=== PATIENT | male | born 1985 | race Caucasian/White ===

== ENCOUNTER 2018-01-26 | Inpatient (IN) | payer OTHER ==
[~2018-01-26] VITALS: Ht 182.9 cm; Wt 95.7 kg
--- NOTE | 2018-01-26 00:55 | RADIOLOGY REPORT ---
EXAMINATION: XR PORTABLE CHEST CLINICAL INFORMATION: Overdose. Rhonchi. Hypoxia. COMPARISON: Chest x-ray January 09, 2012 TECHNIQUE: Portable frontal view of the chest was obtained. 12:19 AM FINDINGS: There is dense consolidation in the right midlung with relative sparing of the upper and lower lung field on the right. There are less dense airspace opacities in the left mid and lower lung which has a similar distribution to the right lung. Differential diagnosis would include therefore overwhelming sepsis with bilateral pneumonia versus cardiogenic etiology. ARDS is less likely but not excluded. There is no pleural effusion. There is no pneumothorax. The cardiac and mediastinal contours are normal. Heart size is normal. IMPRESSION: Bilateral airspace opacities greater on the right than left.
[2018-01-26 01:00] LABS: ABSOLUTE BASOPHIL COUNT 0 /CUMM (0.0-0.2); ABSOLUTE EOSINOPHIL COUNT 0.1 /CUMM (0.0-0.7); ABSOLUTE GRANULOCYTE CT 4.2 /CUMM (1.4-6.5); ABSOLUTE LYMPH COUNT 1.7 /CUMM (1.2-3.4); ABSOLUTE MONOCYTE COUNT 1.4 /CUMM (0.10-0.60); BASOPHIL % 0.3 % (0.0-2.0); EOSINOPHIL % 1.1 % (0-5); GRANULOCYTE % 56.3 % (42.2-75.2); HEMATOCRIT 49.6 % (42-52); MEAN CORPUSCULAR HGB 30.6 PG (27.0-31.0); MEAN CORPUSCULAR HGB CONC 34.3 G/DL (33.0-37.0); MEAN CORPUSCULAR VOLUME 89.3 FL (80.0-94.0); MEAN PLATELET VOLUME 8.9 FL (7.4-10.4); PLATELET COUNT 278 /CUMM (130-400); RBC DISTRIBUTION WIDTH 13.4 % (11.5-14.5); RED BLOOD CELL CT 5.56 /CUMM (4.70-6.10); WHITE BLOOD CELL COUNT 7.5 /CUMM (4.8-10.8)
--- NOTE | 2018-01-26 01:12 | ED GENERAL ADULT ---
History of Present Illness General Chief Complaint: ETOH/Drug Related Complaint Stated Complaint: BIBA FOR OVERDOSE Source: old records, EMS Exam Limitations: unable to give history Vital Signs & Intake/Output Vital Signs & Intake/Output Vital Signs Date Time Temp Pulse Resp B/P B/P Pulse O2 O2 Flow FiO2 Mean Ox Delivery Rate 01/26 0330 105 24 111/62 96 Ventilator 100% 01/26 0300 99.6 102 24 107/60 97 Ventilator 100% 01/26 0215 100.3 105 24 113/62 97 Ventilator 100% 01/26 0200 106 153/85 01/26 0145 100.8 107 24 169/99 95 Ventilator 100% 01/26 0114 100 01/26 0111 92 Ventilator 100% 01/26 0110 108 20 127/73 94 Ventilator 100% 01/26 0107 113 20 124/82 89 Ventilator 01/26 0009 98.5 145 48 144/75 74 Non ReBreather Allergies Coded Allergies: NO KNOWN ALLERGIES (12/27/11) Triage Note: PT BIBA FROM HOME S/P BEING FOUND UNRESPONSIVE ON FLOOR IN PARENT'S HOUSE. PT LAST SEEN AWAKE AT 1700. ON PD ARRIVAL FIRST RESPONDERS, PT WITH AGONAL RESPIRATIONS. PD ADMINISTERED 2 DOSES OF 2 MG NARCAN AND ASSISTED RESPIRATIONS WITH BVM. ON EMS ARRIVAL, O2 SAT 58%. PT AWAKE, ANSWERING QUESTIONS FOR EMS. PT ADMITED TO SNORTING 2 BAGS OF HEROIN AND 2 "HITS OF COCAINE". PER PARENTS, PT HAD BEEN "CLEAN FOR A YEAR" FINGERSTICK BY EMS 322. PT HAS PRE HOSP 20G TO LH, NS INFUSING ON ARRIVAL. ON ARRIVAL TO ED. PT TACHYPNIC AT 48, O2 SAT LOW 70'S ON 100% NRB. PT AFEBRILE. RHONCHI ON AUSCULTATION. PT SMELLS OF VOMIT. DR GILBERT AT BEDSIDE TO EVAL PT. RT CALLED Triage Nurses Notes Reviewed? yes Onset: Just prior to arrival Duration: hour(s):, constant, continues in ED Timing: recent history Injury Environment: home Severity: severe No Modifying Factors: none HPI: The patient was found unresponsive for unknown duration. He was given Narcan by EMS and admitted to snorting 2 bags of heroin and cocaine. He complains of shortness of breath. He denies fever chills chest pain abdominal pain dysuria rash bleeding headache. Prior to intubation he was suctioned and had several episodes of vomiting. Past History Travel History Traveled to [place] past 21 day No Medical History Any Pertinent Medical History? 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 No Review of Systems Review of Systems Constitutional: Reports: see HPI, weakness. EENTM: Reports: no symptoms. Respiratory: Reports: no symptoms, short of breath. Cardiovascular: Reports: no symptoms. GI: Reports: see HPI, nausea, vomiting. Genitourinary: Reports: no symptoms. Musculoskeletal: Reports: no symptoms. Skin: Reports: no symptoms. Neurological/Psychological: Reports: see HPI, weakness. Hematologic/Endocrine: Reports: no symptoms. Immunologic/Allergic: Reports: no symptoms. All Other Systems: Reviewed and Negative Physical Exam Physical Exam General Appearance: well developed/nourished, awake, anxious, severe distress Head: contusions (Left lateral periorbital) Eyes: Bilateral: normal appearance, PERRL, EOMI. Ears, Nose, Throat: normal pharynx, normal ENT inspection Neck: normal inspection, supple, full range of motion, no midline tenderness Respiratory: chest non-tender, accessory muscle use, crackles, rhonchi, respiratory distress Cardiovascular: regular rate/rhythm, normal peripheral pulses, tachycardia, norml femoral pulses equa Peripheral Pulses: 4+ carotid (R), 4+ carotid (L) Gastrointestinal: normal bowel sounds, soft, non-tender, no organomegaly Back: normal inspection, normal range of motion Extremities: normal inspection, normal capillary refill, normal range of motion, no edema Neurologic/Psych: awake, 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 Skin: cyanosis, diaphoresis Lymphatic: no anterior cervical dang Core Measures ACS in differential dx? No CVA/TIA Diagnosis: No Sepsis Present: No Sepsis Focused Exam Completed? No Progress Differential Diagnoses I considered the following diagnoses in my evaluation of the patient: Aspiration pneumonia and ARDS Plan of Care: Orders Procedure Date/time Status Patient Data 01/26 0239 Active VENTILATOR PARAMETERS 01/26 0148 Complete Admit to inpatient 01/26 011 Active Restraint- Medical 01/26 011 Active Munoz, Insertion/Removal/Asses 01/26 011 Active CULTURE,URINE 01/26 011 Active BLOOD CULTURE 01/26 011 Active VENTILATOR PARAMETERS 01/26 0110 Complete Intake & Output 01/26 0034 Active EKG 01/26 0020 Active ARTERIAL BLOOD GAS (GEN) 01/26 0019 Complete URINE DRUG SCREEN FOR ER ONLY 01/26 0016 Complete TROPONIN LEVEL 01/26 001 Complete MAGNESIUM 01/26 0016 Complete ETHANOL 01/26 0016 Complete COMPREHENSIVE METABOLIC PANEL 01/26 001 Complete CBC WITHOUT DIFFERENTIAL 01/26 001 Complete Current Medications Sig/Jada Start time Last Medication Dose Stop Time Status Admin Lorazepam 1 MG ONCE ONE 01/26 0330 UNVr 01/26 (Ativan) 01/26 0331 0331 Vecuronium [place] 10 MG ONCE ONE 01/26 033 UNVr 01/26 (Norcuron) 01/26 0331 0331 Laboratory Tests 01/26/18 0130: pH 7.20 *L, pCO2 54 H, pO2 95, HCO3 21, ABG O2 Sat (Measured) 92.0 L, P-50 ( Temp Corrected) N, Carboxyhemoglobin 3.7, O2 Concentration % 100%, Temperature 98.5, Respiration Rate 20, O2 Delivery Method ESPRIT, Vent Mode AC, Expiratory Pressure 8, Tidal Volume 500, Phlebotomy Draw Site RIGHT RADIAL 01/26/18 0112: Urine Opiates Screen 1950.00, Methadone Screen < 40, Barbiturate Screen < 60, Ur Phencyclidine Scrn < 6.00, Amphetamines Screen 124, U Benzodiazepines Scrn < 85, Urine Cocaine Screen > 1000 H, Urine Cannabis Screen < 5.00 01/26/18 0045: Anion Gap 19 H, Estimated GFR 47 L, BUN/Creatinine Ratio 15.3, Glucose 211 H, Calcium 8.8, Magnesium 2.1, Total Bilirubin 0.5, AST 76 H, ALT 70, Alkaline Phosphatase 87, Troponin I 0.01, Total Protein 7.5, Albumin 4.4, Globulin 3.1, Albumin/Globulin Ratio 1.4, CBC w Diff NO MAN DIFF REQ, RBC 5.56, MCV 89.3, MCH 30.6, MCHC 34.3, RDW 13.4, MPV 8.9, Gran % 56.3, Lymphocytes % 23.0, Monocytes % 19.3 H, Eosinophils % 1.1, Basophils % 0.3, Absolute Granulocytes 4.2, Absolute Lymphocytes 1.7, Absolute Monocytes 1.4 H, Absolute Eosinophils 0.1, Absolute Basophils 0, Serum Alcohol < 10.0 Microbiology 01/26 0200 BLOOD: Blood Culture - RECD 01/26 0112 URINE ROUT: Urine Culture - RECD 01/26 0050 BLOOD: Blood Culture - RECD Diagnostic Imaging: Viewed by Me: Radiology Read. Discussed w/RAD: Radiology Read. CXR Impression: Bilateral airspace opacities greater on the right than left. Initial ED EKG: normal axis, normal intervals, normal p-waves, normal QRS complex, rhythm (sinus tachycardia), nonspecific ST T wave chg Prior EKG: changed Rhythm Strip: sinus tachycardia Departure Departure Disposition: STILL A PATIENT Condition: Critical Clinical Impression Primary Impression: Respiratory failure Secondary Impressions: Acute kidney injury, Aspiration pneumonia, Polysubstance abuse Referrals: Patient Has No Primary Care Dr (PCP/Family) Departure Forms: Customer Survey General Discharge Information Admission Note Spoke With: Suresh Espana MD Documentation of Exam: Documentation of any treatments & extenuating circumstances including Concerns Regarding Discharge (functional status, medication knowledge or non-compliance, living conditions, etc.) that warrant an admission rather than observation: Mechanical ventilation IV antibiotics ICU evaluation cardiac monitoring psychiatry evaluation IV sedation continuing care discharge planning. Procedures Intubation Intubation Method: orotracheal Tube Size (cm): 7.5 Medications: succinylcholine, etomidate Breath Sounds After Intubation: equal Intubation Complications: no complications Post Intubation Xray? Yes Critical Care Note Critical Care Note Critical Care Time: 30-74 min (45)
--- NOTE | 2018-01-26 01:43 | RADIOLOGY REPORT ---
EXAMINATION: XR PORTABLE CHEST CLINICAL INFORMATION: Endotracheal tube placement. COMPARISON: Chest x-ray January 26, 2018 TECHNIQUE: Portable frontal view of the chest was obtained. 1:16 AM FINDINGS: Endotracheal tube catheter 6.4 cm above rose good position. Nasogastric tube passing into the stomach. There is persistent bilateral airspace opacities greater on the right than the left. No large pleural effusions. There is no pneumothorax. IMPRESSION: 1. Endotracheal tube catheter 6.4 cm above rose. 2. Nasogastric tube in stomach. 3. Persistent bilateral airspace opacities worse in the right lung than the left.
--- NOTE | 2018-01-26 03:48 | History & Physical ---
Lashell VAZQUEZ,Balaji 01/26/18 0331: General Information and HPI MD Statement: I have seen and personally examined KY HAMMOND and documented this H&P. The patient is a 32 year old M who presented with a patient stated chief complaint of [subschance use]. Source of Information: EMS Exam Limitations: intubated History of Present Illness: Patient is a 32-year-old male BIBA from the home after he found unresponsive on the floor and his parents house. Patient was completely all right around 17:00. EMS were called and patient was found in agonal respiration he was given 2 doses of 2 mg of Narcaine with BMV. On EMS arrival oxygen saturation was 58%, Blood sugar -322. Patient was awakened answer the questions and admitted that he snorted 2 bags of heroine and 2 hits of cocaine. In the emergency department Dr. Duarte talked to the parents and they told that patient was clean for a year. On arrival to the emergency department patient was severely tachypneic respiratory rate of 48, oxygen saturation was in the range of 70s on 100% of nonrebreather mask, afebrile. On auscultation he was having bronchitis. He vomited. His ABG was showing pH 7.20, PCO2 54, PO2 95, bicarbonate 21. It was decided that he should be intubated. He was intubated and kept on ventilator assist control ventilation with tidal volume of 500, PEEP of 8, respiratory rate of 26. He was having generalized twitches so given injection Ativan 2mg in ED. I called the mother Maggie and ask about the problem and according to her patient was having history of substance use disorder since last 6 years. he underwent multiple programs and was sober since last 8-month. He was incarcerated due to substance use. He also drinks alcohol occasionally. He smokes three quarters of pack every day. 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 He is unmarried. 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 Comments Cannot comment because of the patient's clinical status Exam & Diagnostic Data Last 24 Hrs of Vital Signs/I&O Vital Signs Date Time Temp Pulse Resp B/P B/P Pulse O2 O2 Flow FiO2 Mean Ox Delivery Rate 01/26 0300 99.6 102 20 107/60 97 Ventilator 100% 01/26 0215 100.3 105 20 113/62 97 Ventilator 100% 01/26 0200 106 153/85 01/26 0145 100.8 107 20 169/99 95 Ventilator 100% 01/26 0114 100 01/26 0111 92 Ventilator 100% 01/26 0110 108 20 127/73 94 Ventilator 100% 01/26 0107 113 20 124/82 89 Ventilator 01/26 0009 98.5 145 48 144/75 74 Non ReBreather Intake & Output 01/26 0800 01/26 0000 01/25 1600 Intake Total 2100 Output Total 1050 Balance 1050 Intake, IV 2100 Intake, Oral 0 Output, 750 Emesis Output, Urine 300 Patient 97.522 kg Weight Weight Reported by Patient Measurement Method Physical Exam General Appearance No Acute Distress Cardiovascular Normal S1, Normal S2 Lungs Clear to Auscultation, Normal Air Movement Abdomen Soft, No Tenderness Extremities No Clubbing, No Cyanosis, No Edema Last 24 Hrs of Labs/Tj: Laboratory Tests 01/26/18 0130: pH 7.20 *L, pCO2 54 H, pO2 95, HCO3 21, ABG O2 Sat (Measured) 92.0 L, P-50 ( Temp Corrected) N, Carboxyhemoglobin 3.7, O2 Concentration % 100%, Temperature 98.5, Respiration Rate 20, O2 Delivery Method ESPRIT, Vent Mode AC, Expiratory Pressure 8, Tidal Volume 500, Phlebotomy Draw Site RIGHT RADIAL 01/26/18 0112: Urine Opiates Screen 1950.00, Methadone Screen < 40, Barbiturate Screen < 60, Ur Phencyclidine Scrn < 6.00, Amphetamines Screen 124, U Benzodiazepines Scrn < 85, Urine Cocaine Screen > 1000 H, Urine Cannabis Screen < 5.00 01/26/18 0045: Anion Gap 19 H, Estimated GFR 47 L, BUN/Creatinine Ratio 15.3, Glucose 211 H, Calcium 8.8, Magnesium 2.1, Total Bilirubin 0.5, AST 76 H, ALT 70, Alkaline Phosphatase 87, Troponin I 0.01, Total Protein 7.5, Albumin 4.4, Globulin 3.1, Albumin/Globulin Ratio 1.4, CBC w Diff NO MAN DIFF REQ, RBC 5.56, MCV 89.3, MCH 30.6, MCHC 34.3, RDW 13.4, MPV 8.9, Gran % 56.3, Lymphocytes % 23.0, Monocytes % 19.3 H, Eosinophils % 1.1, Basophils % 0.3, Absolute Granulocytes 4.2, Absolute Lymphocytes 1.7, Absolute Monocytes 1.4 H, Absolute Eosinophils 0.1, Absolute Basophils 0, Serum Alcohol < 10.0 Microbiology 01/26 200 BLOOD: Blood Culture - RECD 01/27 112 URINE ROUT: Urine Culture - RECD 01/26 50 BLOOD: Blood Culture - RECD Diagnostic Data EKG Results NSR, tachycardia CXR Results Bilateral airspace opacities greater on the right than left. Assessment/Plan Assessment: Patient is a 32-year-old male BIBA from the home after he found unresponsive on the floor and his parents house. Vital signs at the time of admission-temperature 98.5, pulse 145, respiratory rate 48, blood pressure 140 over/75, SPO2 74% on nonrebreather mask. Blood workup -hemoglobin 17, hematocrit 49, platelet count 278, granulocyte 56.3 , monocytes 19.3, serum sodium 141, potassium 4.5, chloride 101, carbon dioxide 21, anion gap 19, BUN 26, creatinine 1.7, glucose 211, calcium 8.8, magnesium 2.1, total bilirubin 0.5, AST 76, ALT 70, alkaline phosphatase 87, troponin I 0.01 U tox-positive for the cocaine, serum alcohol less than 10 Assessment and plan - Polysubstance abuse including heroin and cocaine * We will admit the patient to the ICU * Continue ventilator * Injection Ativan 1 mg every 2 as needed * Serial troponins and EKGs to rule out HI * Cardiology/ neurology consult if needed * Strict intake output charting * Watch for seizure * Neuro check every shift * If patient started getting seizures thinking about Keppra * We will follow lactic acid, troponins, CPK Aspiration pneumonia- * Aspiration precaution * Inj Unasyn 1.5 g every 8 hourly * We will follow the blood cultures Acute kidney injury- * IV fluid normal saline 1 85 cc/h * Multivitamin * Strict intake output charting * Regular monitoring of BEP Hyperglycemia - * We will check HbA1c * fingerstick every 6 hourly * NovoLog according to the sliding scale CODE STATUS-full code Diet-n.p.o. DVT prophylaxis -ALPs/heparin As Ranked By This Provider Problem List: 1. Acute kidney injury 2. Polysubstance abuse 3. Aspiration pneumonia 4. Respiratory failure 5. Opiate overdose 6. Enteritis Core Measures/Misc (01/29) Acute Coronary Syndrome ACS Diagnosis: No Congestive Heart Failure Congestive Heart Failure Diagnosis No Cerebrovascular Accident CVA/TIA Diagnosis: No VTE (View Protocol) VTE Risk Factors Acute Medical Illness No Mechanical VTE Prophylaxis d/t N/A MechProphylax Ordered No VTE Pharm Prophylaxis d/t NA PharmProphylax ordered Comment: none Sepsis (View protocol) Sepsis Present: No If YES complete Sepsis Event Note If YES complete Sepsis Event Note Suresh Espana MD 01/26/18 0549: Core Measures/Misc (01/29) Sepsis (View protocol) If YES complete Sepsis Event Note If YES complete Sepsis Event Note Attending MD Review Statement Attending Statement Attending MD Statement: examined this patient, discuss 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 Patient is currently intubated on mechanical ventilation maintaining saturation on 100% FiO2 and PEEP of 8. He is nonresponsive to verbal or tactile stimuli. Currently not on any sedatives. He did receive Ativan, etomidate and vecuronium prior to intubation. HEENT: Left periorbital ecchymosis. Pupils equal and reactive to light. ET tube in place. Neck: Supple Heart: S1-S2 regular with no audible murmur Lungs: Adequate air entry bilaterally with no added sounds. Abdomen: Soft, nontender with normal bowel sounds Extremities: No edema. Skin: Intact. Laboratory data reviewed Noted to have significant metabolic respiratory acidosis soon after intubation. No leukocytosis on labs. Hemoglobin within normal limits serum chemistry shows. Creatinine 1.7. No labs here for comparison. Mild rhabdomyolysis with CK level of 379. Elevated LDL. Problems: 1. Acute hypoxic respiratory failure 2. Polysubstance abuse 3. Aspiration pneumonia bilateral 4. Acute kidney injury 5. Evidence of hepatoma . Plan: -Admit to the intensive care unit for further management. -Continue mechanical ventilation. Ventilator settings have been adjusted with increased respiratory rate. Repeat ABG. Critical care consultation. -Hydrate with D5 half normal saline at 100 cc an hour. Repeat serum chemistry. Obtain abdominal sonogram to rule out obstructive uropathy. -In view of head trauma obtain head CT scan. -Antibiotic therapy with IV Unasyn. Obtain sputum cultures if possible. Obtain blood cultures. -Chemical DVT prophylaxis if no evidence of intracranial hemorrhage on head CT. -Further management will be determined by his clinical course.
[2018-01-26 05:31] LABS: ABSOLUTE BASOPHIL COUNT 0 /CUMM (0.0-0.2); ABSOLUTE EOSINOPHIL COUNT 0 /CUMM (0.0-0.7); ABSOLUTE LYMPH COUNT 0.8 /CUMM (1.2-3.4); EOSINOPHIL % 0.1 % (0-5); PLATELET COUNT 195 /CUMM (130-400)
[2018-01-26 05:37] LABS: ABSOLUTE MONOCYTE COUNT 0.4 /CUMM (0.10-0.60); BASOPHIL % 0 % (0.0-2.0); MEAN CORPUSCULAR HGB 30.2 PG (27.0-31.0); MEAN CORPUSCULAR VOLUME 88.9 FL (80.0-94.0); MEAN PLATELET VOLUME 8.4 FL (7.4-10.4); RBC DISTRIBUTION WIDTH 13.6 % (11.5-14.5); RED BLOOD CELL CT 4.83 /CUMM (4.70-6.10); WHITE BLOOD CELL COUNT 8.1 /CUMM (4.8-10.8)
--- NOTE | 2018-01-26 05:46 | Admission Certification ---
Admission Certification Certification Statement - As attending physician, I certify that at the time of - admission, based on clinical presentation, severity of - symptoms, need for further diagnostic testing and - therapeutic interventions, and risk of adverse outcomes - without in-hospital treatment, in my clinical assessment, - this patient requires an acute hospital stay for a minimum - of two nights or longer. I have also considered psychsocial - factors such as support system, advanced age, financial - issues, cognitive issues, and failed out-patient treatments, - past re-admission history, safety of patient, and lack of - compliance as applicable. Specific rationale supporting this admission is: Patient requires hospitalization for management of acute hypoxic respiratory failure and aspiration pneumonia and drug overdose
[2018-01-26 05:56] LABS: GRANULOCYTE % 85.7 % (42.2-75.2)
[2018-01-26 05:57] LABS: HEMATOCRIT 42.9 % (42-52)
--- NOTE | 2018-01-26 07:28 | Cons- CRCU ---
Allen Kong 01/26/18 0727: General Information and HPI Consulting Request Date of Consult: 01/26/18 Source of Information: family, old records Exam Limitations: unable to give history, not alert/orientated, clinical condition History of Present Illness: Mr Crowell is a 32-year-old male BIBA from the home after he found unresponsive on the floor and his parents house. Patient was last seen normal around 17:00. EMS were called and patient was found in agonal respiration he was given 2 doses of 2 mg of Narcaine with BMV. On EMS arrival oxygen saturation was 58%, Blood sugar -322. Patient was awakened answer the questions and admitted that he snorted 2 bags of heroine and 2 hits of cocaine. In the emergency department Dr. Duarte talked to the parents and they told that patient was clean for a year. On arrival to the emergency department patient was severely tachypneic respiratory rate of 48, oxygen saturation was in the range of 70s on 100% of nonrebreather mask, afebrile. On auscultation he was having bronchitis. He vomited. His ABG was showing pH 7.20, PCO2 54, PO2 95, bicarbonate 21. It was decided that he should be intubated. He was intubated and kept on ventilator assist control ventilation with tidal volume of 500, PEEP of 8, respiratory rate of 26. He was having generalized twitches so given injection Ativan 2mg in ED. House staff called the mother Maggie and ask about the problem and according to her patient was having history of substance use disorder since last 6 years. He underwent multiple programs and was sober since last 8-month. He was incarcerated due to substance use. He also drinks alcohol occasionally. He smokes three quarters of pack every day. 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 He is unmarried. On my examination, patient was sedated and intubated on Ativan drip. Patient did open eyes, closed fist and followed commands. Was sinus on monitor and appeared comfortable. Lungs had rhonchi to R base and apex, L upper lobe. Family was at bedside. States that patient has no past medical history, but has been struggling with addiction. Has been clean for ~8 months, but has been under increasing stress with work and per brother "fell back in with the wrong crowd". States that he does not typically drink. States that he has not expressed any SI recently. Allergies/Medications Allergies: Coded Allergies: NO KNOWN ALLERGIES (12/27/11) Current Medications: Current Medications Sig/Jada Start time Last Medication Dose Route Stop Time Status Admin Acetaminophen 1,000 MG ONCE ONE 01/26 0900 DC 01/26 N/A 1 UNIT IV 01/26 09 0859 Ampicillin Sodium/ 1,500 MG Q6 01/26 0600 AC 01/26 Sulbactam Sodium IV 0608 Sodium Chloride 100 ML Ampicillin Sodium/ 0 .STK-MED ONE 01/26 0211 DC Sulbactam Sodium .ROUTE Ampicillin Sodium/ 3,000 MG ONCE ONE 01/26 0130 DC 01/26 Sulbactam Sodium IV 01/26 0159 0210 Sodium Chloride 100 ML Cyanocobalamin/ 1 BAG DAILY 01/26 0900 AC 01/26 Thiamine/Pyridoxine IV 0859 Dextrose/Water 1,000 ML Etomidate 20 MG ONCE ONE 01/26 0115 DC 01/26 IV 01/26 0116 0057 Fentanyl Citrate 1,000 MCG Q24H 01/26 1115 AC Sodium Chloride 250 ML IV Heparin Sodium 5,000 UNIT Q8 01/26 0600 AC 01/26 (Porcine) SC 0533 Insulin Aspart 0 Q6 01/26 0600 AC SC Lorazepam 2 MG ONE ONE 01/26 0530 DC 01/26 IV 01/26 0531 0515 Lorazepam 50 MG Q24H 01/26 0500 AC 01/26 Sodium Chloride 500 ML IV 0540 Lorazepam 1 MG Q2 PRN 01/26 0400 DC IV Lorazepam 1 MG ONCE ONE 01/26 0330 DC 01/26 IV 01/26 0331 0331 Lorazepam 0 .STK-MED ONE 01/26 0329 DC .ROUTE Lorazepam 1 MG ONCE ONE 01/26 0215 DC 01/26 IV 01/26 0216 0200 Lorazepam 1 MG ONCE ONE 01/26 0115 DC 01/26 IV 01/26 0116 0102 Lorazepam 0 .STK-MED ONE 01/26 0104 DC .ROUTE Magnesium Sulfate 1 GM ONCE ONE 01/26 1015 DC 01/26 Dextrose/Water 100 ML IV 01/26 1114 1025 Ondansetron HCl 0 .STK-MED ONE 01/26 0020 DC .ROUTE Pantoprazole Sodium 40 MG DAILY 01/26 0900 AC 01/26 IV 0858 Sodium Chloride 1,000 ML Q13H 01/26 1130 AC IV Sodium Chloride 1,000 ML BOLUS ONE 01/26 0115 DC 01/26 IV 01/26 0214 0000 Sodium Chloride 1,000 ML BOLUS ONE 01/26 0115 DC / IV 01/26 0214 0145 Succinylcholine 100 MG ONCE ONE 01/26 0115 DC 01/26 Chloride IV 01/26 0116 0058 Vecuronium [place] 10 MG ONCE ONE 01/26 0330 DC 01/26 IV 01/26 0331 0331 Vecuronium [place] 0 .STK-MED ONE 01/26 0329 DC IV Vecuronium [place] 10 MG ONCE ONE 01/26 0215 DC 01/26 IV 01/26 0216 0204 Vecuronium [place] 0 .STK-MED ONE 01/26 0204 DC IV Vecuronium [place] 10 MG ONCE ONE 01/26 0115 DC 01/26 IV 01/26 0116 0101 Review of Systems Review of Systems Constitutional: Reports: see HPI (Unable to assess 2/2 intubated). 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 Surgical History Surgical History: none Psychosocial History ETOH Use: occasional use Illicit Drug Use: cocaine, heroin Exam & Diagnostic Data Last 24 Hrs of Vital Signs/I&O Vital Signs Date Time Temp Pulse Resp B/P B/P Pulse O2 O2 Flow FiO2 Mean Ox Delivery Rate 01/26 1022 100.3 01/26 1019 80 01/26 0859 101.1 01/26 0835 90 01/26 0800 99.0 90 26 102/64 100 Ventilator 90% 01/26 0800 100 Ventilator 90% 01/26 0552 100 01/26 0423 100 01/26 0400 95 Ventilator 100% 01/26 0348 100 01/26 0330 105 24 111/62 96 Ventilator 100% 01/26 0300 99.6 102 24 107/60 97 Ventilator 100% 01/26 0215 100.3 105 24 113/62 97 Ventilator 100% 01/26 0200 106 153/85 01/26 0145 100.8 107 24 169/99 95 Ventilator 100% 01/26 0114 100 01/26 0111 92 Ventilator 100% 01/26 0110 108 20 127/73 94 Ventilator 100% 01/26 0107 113 20 124/82 89 Ventilator 01/26 0009 98.5 145 48 144/75 74 Non ReBreather Intake & Output 01/26 1600 01/26 0800 01/26 0000 Intake Total 2220 Output Total 1675 Balance 545 Intake, IV 2220 Intake, Oral 0 Output, 750 Emesis Output, Urine 925 Patient 218 lb 219 lb Weight Weight Bed scale Measurement Method Physical Exam General Appearance: no apparent distress, sedated, intubated Head: healing ecchymosis to L eye, small minute laceration to L forehead Ears, Nose, Throat: normal pharynx, intubated, og tube in place Neck: normal inspection Respiratory: crackles, RLL+RUL, LIV Cardiovascular: regular rate/rhythm, normal peripheral pulses Gastrointestinal: soft, non-tender Extremities: no edema, restraints in place, multiple tattoos on forearms Neurologic/Psych: sedated Last 48 Hrs of Labs/Tj: Laboratory Tests 01/26/18 0750: Lactic Acid 1.7 01/26/18 0500: Lactic Acid 1.2 01/26/18 0500: Anion Gap 7, Estimated GFR > 60, Glucose 83, Calcium 8.0 L, Phosphorus 3.3, Magnesium 1.6, Total Bilirubin 0.8, AST 63 H, ALT 65, Troponin I 0.05, Albumin 3.3 L, CBC w Diff MAN DIFF ORDERED, RBC 4.83, MCV 88.9, MCH 30.2, MCHC 34.0, RDW 13.6, MPV 8.4, Gran % 85.7 H, Lymphocytes % 9.7 L, Monocytes % 4.5, Eosinophils % 0.1, Basophils % 0, Absolute Granulocytes 7.0 H, Segmented Neutrophils 66, Band Neutrophils 15 H, Absolute Lymphocytes 0.8 L, Lymphocytes 13 L, Monocytes 6, Absolute Monocytes 0.4, Absolute Eosinophils 0, Absolute Basophils 0, Platelet Estimate ADEQUATE, Normocytic RBCs VERIFIED, Normochromic RBCs VERIFIED, Hepatitis A IgM Ab Pending, Hep Bs Antigen NONREACTIVE, Hep B Core IgM Ab Conf Pending, Hepatitis C Antibody Pending, HIV 1&2 Ab Western Blot Pending 01/26/18 0450: pH 7.26 *L, pCO2 48 H, pO2 92, HCO3 21, ABG O2 Sat (Measured) 95.0 L, P-50 ( Temp Corrected) Y, Carboxyhemoglobin 1.5, O2 Concentration % 100%, Temperature 98.8, Respiration Rate 24, O2 Delivery Method ESPRIT, Vent Mode AC, Expiratory Pressure 8, Tidal Volume 500, Phlebotomy Draw Site RIGHT BRACHIAL 01/26/18 0130: pH 7.20 *L, pCO2 54 H, pO2 95, HCO3 21, ABG O2 Sat (Measured) 92.0 L, P-50 ( Temp Corrected) N, Carboxyhemoglobin 3.7, O2 Concentration % 100%, Temperature 98.5, Respiration Rate 20, O2 Delivery Method ESPRIT, Vent Mode AC, Expiratory Pressure 8, Tidal Volume 500, Phlebotomy Draw Site RIGHT RADIAL 01/26/18 011: Urine Opiates Screen 1950.00, Methadone Screen < 40, Barbiturate Screen < 60, Ur Phencyclidine Scrn < 6.00, Amphetamines Screen 124, U Benzodiazepines Scrn < 85, Urine Cocaine Screen > 1000 H, Urine Cannabis Screen < 5.00 01/26/18 0045: Anion Gap 19 H, Estimated GFR 47 L, BUN/Creatinine Ratio 15.3, Glucose 211 H, Hemoglobin A1c 5.2, Calcium 8.8, Magnesium 2.1, Total Bilirubin 0.5, AST 76 H, ALT 70, Alkaline Phosphatase 87, Creatine Kinase 379 H, Troponin I 0.01, Total Protein 7.5, Albumin 4.4, Globulin 3.1, Albumin/Globulin Ratio 1.4, TSH &T3 & Free T4 Intrp 1.470, CBC w Diff NO MAN DIFF REQ, RBC 5.56, MCV 89.3, MCH 30.6, MCHC 34.3, RDW 13.4, MPV 8.9, Gran % 56.3, Lymphocytes % 23.0, Monocytes % 19.3 H, Eosinophils % 1.1, Basophils % 0.3, Absolute Granulocytes 4.2, Absolute Lymphocytes 1.7, Absolute Monocytes 1.4 H, Absolute Eosinophils 0.1, Absolute Basophils 0, Serum Alcohol < 10.0 Microbiology 01/27 112 URINE ROUT: Legionella Antigen - COMP 01/27 112 URINE ROUT: Streptococcus pneumoniae Antigen (M - COMP Assessment/Plan CRCU Impression/Plan: Mr Crowell is a 32-year-old male with a past medical history of substance abuse with multiple inpatient treatments, was incarcerated for substance abuse, overdose on heroin and cocaine by snorting yesterday with desaturations, woke up after 2 mg Narcan 2, vomited in the ED and was intubated, sedated and intubated at this time. He was febrile today, and is on Unasyn day 2. His chest x-ray today showed bilateral opacification, potential early ARDS. Respiratory: Possible ARDS, Aspiration PNA -On exam lungs have crackles to RLL, RUL, LIV -Intubated and sedated, TV465/RR28/PEEP10/FiO2 goal 70% -Will implement low TV with high PEEP for suspected ARDS -CXR showed : Persistent bilateral airspace opacities worse in the right lung than the left. -ABG at 0450 7.26/48/21 /O2 -92 ; will f/u next ABG -Nebs/TRC prn Infectious Disease: suspected aspiration pneumonia -Leukocytes 8.2 with Bands of 15; Tmax 101.1 most recently this morning -Urine antigens negative for strep or legionella -On Unasyn 1500mg IV q6, day 2 -Hepatitis and HIV serology pending -Cultures pending, NGTD Cardiovascular/Circulation: cocaine use, r/o ACS -NSR at 90 -Troponin and EKG pending given usage of cocaine and potential for coronary vasospasm -Previous troponin 0.05 Hematological: stable -H/H 14.6/42.9 Metabolic: Tox positive for Cocaine, Opiates -Had high blood surgars, on insulin sliding scale -Mild transaminitis -S/p 1g magnesium -Will replete lytes as needed -Monitor with ICU bundle -Check repeat lactate at 12pm Alimentary: -NPO as intubated -IVF 75cc/hr -s/p Thiamine, MVI Neurologic: sedated -Sedated with Ativan drip and Fentanyl drip. Maintain SAS at 2 -Will go for head CT today, will consult neuro if abnormal results. Given snorting of heroin potential for toxic leukoencephalopathy. Nephro: -Munoz in place, monitor I/O -UOP should be at least 30cc/hr DVT PPX IV access Full Code Problem List: 1. Polysubstance abuse 2. Aspiration pneumonia Consult Acknowledgment - Thank you for your consult request. Rashida VAZQUEZ,Jeanine Mcdonough 01/26/18 0816: General Information and HPI Consulting Request Date of Consult: 01/26/18 Requested By: Dr. Espana Reason for Consult: CRCU management Source of Information: old records Exam Limitations: unable to give history, not alert/orientated, clinical condition Allergies/Medications Current Medications: Current Medications Sig/Jada Start time Last Medication Dose Route Stop Time Status Admin Ampicillin Sodium/ 1,500 MG Q6 01/26 0600 AC 01/26 Sulbactam Sodium IV 0608 Sodium Chloride 100 ML Ampicillin Sodium/ 0 .STK-MED ONE 01/26 0211 DC Sulbactam Sodium .ROUTE Ampicillin Sodium/ 3,000 MG ONCE ONE 01/26 0130 DC 01/26 Sulbactam Sodium IV 01/26 0159 0210 Sodium Chloride 100 ML Cyanocobalamin/ 1 BAG DAILY 01/26 09 AC Thiamine/Pyridoxine IV Dextrose/Water 1,000 ML Etomidate 20 MG ONCE ONE 01/26 0115 DC 01/26 IV 01/26 0116 0057 Heparin Sodium 5,000 UNIT Q8 01/26 0600 AC 01/26 (Porcine) SC 0533 Insulin Aspart 0 Q6 01/26 0600 AC SC Lorazepam 2 MG ONE ONE 01/26 0530 DC 01/26 IV 01/26 0531 0515 Lorazepam 50 MG Q24H 01/26 0500 AC 01/26 Sodium Chloride 500 ML IV 0540 Lorazepam 1 MG Q2 PRN 01/26 0400 DC IV Lorazepam 1 MG ONCE ONE 01/26 0330 DC 01/26 IV 01/26 0331 0331 Lorazepam 0 .STK-MED ONE 01/26 0329 DC .ROUTE Lorazepam 1 MG ONCE ONE 01/26 0215 DC 01/26 IV 01/26 0216 0200 Lorazepam 1 MG ONCE ONE 01/26 0115 DC 01/26 IV 01/26 0116 0102 Lorazepam 0 .STK-MED ONE 01/26 0104 DC .ROUTE Ondansetron HCl 0 .STK-MED ONE 01/26 0020 DC .ROUTE Pantoprazole Sodium 40 MG DAILY 01/26 0900 AC IV Sodium Chloride 1,000 ML BOLUS ONE 01/26 0115 DC 01/26 IV 01/26 0214 0000 Sodium Chloride 1,000 ML BOLUS ONE 01/26 0115 DC 09/14 IV 09/ 0214 0145 Succinylcholine 100 MG ONCE ONE 01/26 0115 DC 09/14 Chloride IV / 0116 0058 Vecuronium [place] 10 MG ONCE ONE 01/26 0330 DC 09/14 IV 09/ 0331 0331 Vecuronium [place] 0 .STK-MED ONE 01/26 0329 DC IV Vecuronium [place] 10 MG ONCE ONE 01/26 0215 DC 09/14 IV / 0216 0204 Vecuronium [place] 0 .STK-MED ONE 01/26 0204 DC IV Vecuronium [place] 10 MG ONCE ONE 01/26 0115 DC 09/14 IV / 0116 0101 Assessment/Plan CRCU Other Findings/Comments: I have personally seen and examined the patient and agree with the resident's assessment and plan as detailed above. Briefly, the patient is a 32-year-old male with a history of polysubstance abuse. The patient has struggled with addiction for the past 6 years. He has been in multiple treatment centers. As per the chart, he was recently sober for 8 months. The patient was brought in by ambulance overnight after being found unresponsive on the floor and his parents home. EMS was called and the patient was found to have agonal respirations. He was given 2 doses of 2 mg of Narcan with bag mask ventilation. Per the chart, the patient's saturation was 58% at the time. Once more awake, the patient admitted to snorting heroin and cocaine. In the ED, the patient was tachypneic with saturations in the 70s on 100% nonrebreather. He had multiple episodes of vomiting in route to the hospital. His ABG showed a pH 7.20, PCO2 54, PO2 95, and bicarb of 21. The patient was subsequently intubated. Patient' s chest x-ray showed severe bilateral infiltrates consistent with aspiration pneumonitis versus pneumonia. The patient currently remains intubated, on lorazepam at 2 mg/h, and not arousable. His oxygen saturation is in the high 90s-100% on 100% oxygen with [address] scan of the head is pending. The patient is not able to give any history. Impression: 1. Acute severe, hypoxemic respiratory failure secondary to aspiration pneumonitis versus aspiration pneumonia. The patient also may have early ARDS. AA gradient is 105. Calculated ideal body weight is 77.6 kg, and low tidal volume ventilation strategies are to be implemented. 2. Heroin and cocaine overdose. 3. History of alcohol abuse. 4. Ongoing respiratory acidosis. Plan: * Vent settings to be changed: AC28, TV 465 ml, PO2 90%, and PEEP of 10. * Check an ABG following the blood gas change after 1 hour. Will make changes as necessary. * We will tolerate permissive hypercapnia if necessary. * Continue to taper oxygen down for saturations greater than 92%. * Nebs/total respiratory care around the clock. * Continue empiric IV Unasyn. * Follow-up cultures results. * Check repeat labs at 5 PM. * IV fluidsnormal saline at 75 mL/h. * Monitor urine output, ensure 30 mL/h. * Continue Ativan drip for SAS of 2. * Add fentanyl drip if necessary to improve sedation. * Follow-up head CT results. * Will request neurology input depending on the results. * Continue multivitamin, thiamine and folate. * DVT prophylaxis. Consult Acknowledgment - Thank you for your consult request.
[2018-01-26 08:00] VITALS: BP 102/64
[2018-01-26 12:00] VITALS: BP 100/50
[2018-01-26 16:00] VITALS: BP 108/64
--- NOTE | 2018-01-26 16:27 | CT SCAN REPORT ---
EXAMINATION: CT HEAD WITHOUT CONTRAST CLINICAL INFORMATION: Head trauma COMPARISON: 04/01/2011 TECHNIQUE: Contiguous axial imaging was performed from the skull base to vertex without intravenous administration of contrast. DLP: 621 mGy-cm FINDINGS: There is no evidence of acute intracranial hemorrhage or territorial infarction. No abnormal mass effect or midline shift is seen. Howard to white matter differentiation is well preserved. No extra-axial fluid collections are identified. The ventricles are normal in size. There is no abnormal attenuation within the brain parenchyma. The osseous structures and soft tissues are normal. Mucus retention present within the right sphenoid chamber which is half full. There is mucosal thickening throughout the right maxillary sinus and ethmoid air cells. Bilateral mary bullosa are present, larger on the right with associated leftward osseous nasal septal deviation. IMPRESSION: No acute intracranial pathology. Mild paranasal sinus inflammatory changes.
--- NOTE | 2018-01-26 17:42 | ULTRASOUND REPORT ---
US RETROPERITONEAL COMPLETE (RENAL) CLINICAL INFORMATION: History of cocaine. Acute kidney injury. COMPARISON: Abdominal CT 04/12/2013. TECHNIQUE: Real-time imaging of the kidneys and bladder. FINDINGS: RIGHT KIDNEY: 10.1 x 4.8 x 4.1 cm (SAG x AP x TRV). The kidney is normal in size, contour, and echogenicity. Renal cortical thickness is normal. No calculi or focal parenchymal lesions. No hydronephrosis. LEFT KIDNEY: 10.4 x 5.1 x 4.5 cm (SAG x AP x TRV). The kidney is normal in size, contour, and echogenicity. Renal cortical thickness is normal. No calculi or focal parenchymal lesions. No hydronephrosis. BLADDER: Bladder decompressed with a Munoz catheter in place. IMPRESSION: Unremarkable renal ultrasound.
[2018-01-26 23:50] VITALS: BP 106/60
[2018-01-27 04:41] LABS: ABSOLUTE BASOPHIL COUNT 0 /CUMM (0.0-0.2); ABSOLUTE EOSINOPHIL COUNT 0.1 /CUMM (0.0-0.7); ABSOLUTE GRANULOCYTE CT 9.4 /CUMM (1.4-6.5); ABSOLUTE LYMPH COUNT 1.3 /CUMM (1.2-3.4); ABSOLUTE MONOCYTE COUNT 0.5 /CUMM (0.10-0.60); BASOPHIL % 0.2 % (0.0-2.0); EOSINOPHIL % 0.4 % (0-5); GRANULOCYTE % 83.4 % (42.2-75.2); MEAN CORPUSCULAR HGB 30.7 PG (27.0-31.0); MEAN CORPUSCULAR HGB CONC 34.2 G/DL (33.0-37.0); MEAN CORPUSCULAR VOLUME 89.8 FL (80.0-94.0); MEAN PLATELET VOLUME 8.4 FL (7.4-10.4); PLATELET COUNT 150 /CUMM (130-400); RBC DISTRIBUTION WIDTH 13.8 % (11.5-14.5); RED BLOOD CELL CT 3.88 /CUMM (4.70-6.10); WHITE BLOOD CELL COUNT 11.2 /CUMM (4.8-10.8)
[2018-01-27 04:54] LABS: HEMATOCRIT 34.8 % (42-52)
[2018-01-27 08:00] VITALS: BP 100/56
--- NOTE | 2018-01-27 08:01 | PN- Resident CRCU ---
Allen Kong. 01/27/18 0801: Subjective HPI/CRCU Issues: Heroin/Cocaine overdose Aspiration Pneumonia growing Staph Mild ARDS 24 Hour Events: No acute events overnight. Patient was on ventilator, ABG this morning showed PaO2/FiO2 gradient 166, improved from yesterday's ABG. Current settings 465/22/ 5/35%, plans to decrease respiratory rate. Chest x-ray this morning is much better than yesterday's. Patient still is sedated, however can shake head, opens eyes when name is called, squeezes hands. No acute distress noted. He is on day 3 of Unasyn, and his cultures are now growing staph. Objective Vital Signs & I&O Last 8 Hrs of Vitals and I&O: Intake & Output 01/27 1600 Intake Total Output Total Balance Patient 219 lb Weight Weight Bed scale Measurement Method Exam General Appearance: no apparent distress, sedated, intubated Head: ecchymosis to L eye, healing minute laceration to forehead Ears, Nose, Throat: normal pharynx Respiratory: normal breath sounds, lungs clear Cardiovascular: regular rate/rhythm Gastrointestinal: soft, non-tender Extremities: normal inspection, no edema Skin: intact Skin Temp/Moisture Exam: Warm/Dry Current Medications: Current Medications Sig/Jada Start time Last Medication Dose Route Stop Time Status Admin Ampicillin Sodium/ 1,500 MG Q6 01/26 0600 DC 01/27 Sulbactam Sodium IV 0531 Sodium Chloride 100 ML Cyanocobalamin/ 1 BAG DAILY 01/26 0900 01/27 Thiamine/Pyridoxine IV 0945 Dextrose/Water 1,000 ML Fentanyl Citrate 1,000 MCG Q24H 01/27 1100 AC Sodium Chloride 250 ML IV Fentanyl Citrate 1,000 MCG Q24H 01/26 1115 DC 01/26 Sodium Chloride 250 ML IV 1206 Heparin Sodium 5,000 UNIT Q8 01/26 0600 AC 01/27 (Porcine) SC 0530 Insulin Aspart 0 Q6 01/26 0600 AC SC Lorazepam 50 MG Q16H 01/27 1600 AC Sodium Chloride 500 ML IV Lorazepam 50 MG Q24H 01/26 0500 DC 01/27 Sodium Chloride 500 ML IV 0007 Magnesium Sulfate 1 GM ONCE ONE 01/27 0600 DC 01/27 Dextrose/Water 100 ML IV 01/27 0659 0616 Magnesium Sulfate 1 GM ONCE ONE 01/26 1015 DC 01/26 Dextrose/Water 100 ML IV 01/26 1114 1025 Midazolam HCl 2 MG ONCE ONE 01/26 1730 CAN IV 01/26 1731 Multivitamins 15 ML DAILY 01/27 1055 AC PO Non-Formulary 0 SEE ADMIN CRITERIA 01/26 1730 DC Medication ANY Pantoprazole Sodium 40 MG DAILY 01/26 0900 AC 01/27 IV 0905 Phosphate 500 MG Q1 01/27 1000 DC PO 01/27 1101 Sodium Chloride 1,000 ML Q13H 01/26 1130 AC 01/26 IV 2205 Sodium Phosphate 15 mMol Q1 01/27 1100 DC Sodium Chloride 250 ML IV 01/27 1159 Sodium Phosphate 15 mMol ONCE ONE 01/27 1100 AC Sodium Chloride 250 ML IV 01/27 1504 Vancomycin HCl 2,000 MG Q12 01/27 1100 AC Sodium Chloride 500 ML IV Impression/Plan Impression/Problem List Impression: Mr Crowell is a 32-year-old male with a past medical history of substance abuse with multiple inpatient treatments, was incarcerated for substance abuse, overdose on heroin and cocaine by snorting yesterday with desaturations, woke up after 2 mg Narcan 2, vomited in the ED and was intubated, sedated and intubated at this time. He was borderline febrile today, and is on Unasyn day 3. His chest x-ray today is much improved from yesterday's which showed bilateral opacification. Respiratory: acute hypoxemic respiratory failure, aspiration PNA, Mild ARDS, -On exam lungs are more clear -Intubated and sedated, TV465/RR22/PEEP5/FiO2 35% -Will implement low TV with high PEEP for suspected ARDS -C hest x-ray improved today -ABG at 0420 7.42/37/23 /O2 -83 ; will f/u next ABG -Nebs/TRC prn Infectious Disease: suspected aspiration pneumonia -Leukocytes 11.2 with bands of 5; Tmax 100.2 most recently this morning -Urine antigens negative for strep or legionella -On Unasyn 1500mg IV q6, day 3 -Hepatitis C serology positive, will follow-up outpatient GI for workup -Cultures growing staph aureus, without sensitivities yet. Cardiovascular/Circulation: cocaine use, r/o ACS -NSR on the monitor -Troponin and EKG negative Hematological: stable -H/H 11.9/34.8 Metabolic: Tox positive for Cocaine, Opiates -Had high blood surgars, on insulin sliding scale -Mild transaminitis which is resolving -Hypophosphatemic, will aggressively replete -Will replete lytes as needed -Monitor with ICU bundle -We will recheck electrolytes at 4 PM Alimentary: -NPO as intubated -IVF 75cc/hr -s/p Thiamine, MVI input. Neurologic: sedated -Sedated with Ativan drip and Fentanyl drip. Maintain SAS at 2 -CT head yesterday was negative Nephro: Mild PAUL, resolved -Munoz in place, monitor I/O -UOP should be at least 30cc/hr DVT PPX IV access Full Code Problem List: 1. Acute kidney injury 2. Aspiration pneumonia Pain Ratin Tomorrow's Labs & Rationales: CBC ICU bundle Plan DVT/Prophylaxis: mechanical, pharmacological Gracia VAZQUEZ,Dontrell 01/27/18 0943: Attending MD Review Statement Attending Sign Off Attending Cosign Statement: I have: examined this patient, reviewed [employer] EMR data, personally reviewd images, discussd w/resident/PA/SPECIAL NEEDS NANNY, discussed mgmt plan w/kate, discussed mgmt plan w/CM, discussed mgmt plan w/pt, agreed w/resident/PA/SPECIAL NEEDS NANNY, amended to note. Other Findings: Impression 32 year old man * Acute severe, hypoxemic respiratory failure secondary to aspiration pneumonia * Heroin and cocaine overdose * History of alcohol dependence * resolved PAUL Plan Respiratory -cxr significantly improved -P/F ratio 9/15 - 166 - consistent with moderate ARDS - however cxr improved and since abg fio2 decreased to 35% -CMV 465/22/5/35% - will attempt to reduce RR and maintain o2 sats above 92% -TRC ID -currently on empiric IV Unasyn -staph aureus in sputum - will give Vancomycin until cultures return -HCV ab reactive -would require GI consultation on an outpatient basis CVS -baseline ECHO Heme -monitor coags, cbc Metabolic -ins/outs -creatinine resolved -replete phosphate aggressively Alimentary -OGT tube feed trials after phophate repletion Neuro -fentanyl and ativan drips -mvi, folate, thimaine DVT prophylaxis at all times Attending time spent 40 min
--- NOTE | 2018-01-27 09:10 | RADIOLOGY REPORT ---
EXAMINATION: XR PORTABLE CHEST CLINICAL INFORMATION: Aspiration pneumonia. Intubated. COMPARISON: 01/26/2018 TECHNIQUE: Portable frontal view of the chest was obtained. FINDINGS: Endotracheal tube is located 7 cm above the rose, unchanged compared to 01/26/2018. The enteric tube extends below the diaphragm and into the stomach; however, this tube is suboptimally visualized. The patchy airspace opacities in both lungs have improved. There is residual, decreased patchy opacity in the right perihilar region and in both lower lobes. Cardiomediastinal silhouette has normal size and contour. No pneumothorax or pneumomediastinum. The visualized bones are intact. IMPRESSION: - Endotracheal tube in satisfactory position at 7 cm above the rose. - Patchy bilateral pulmonary opacities have decreased/improved compared to 01/26/2018.
[2018-01-27 16:00] VITALS: BP 104/50
[2018-01-27 18:03] LABS: PT 11.7 SEC (9.4-12.5); PTT 28 SEC (25-37)
[2018-01-27 20:00] VITALS: BP 106/54
[2018-01-27 22:00] VITALS: BP 116/62
[2018-01-28] VITALS (7 sets, daily range): BP systolic 14–120; BP diastolic 54–70
[2018-01-28 05:00] LABS: ABSOLUTE BASOPHIL COUNT 0 /CUMM (0.0-0.2); ABSOLUTE EOSINOPHIL COUNT 0.2 /CUMM (0.0-0.7); ABSOLUTE GRANULOCYTE CT 6.1 /CUMM (1.4-6.5); ABSOLUTE LYMPH COUNT 1.6 /CUMM (1.2-3.4); ABSOLUTE MONOCYTE COUNT 0.5 /CUMM (0.10-0.60); BASOPHIL % 0.4 % (0.0-2.0); EOSINOPHIL % 2.3 % (0-5); GRANULOCYTE % 72.2 % (42.2-75.2); MEAN CORPUSCULAR HGB 30.5 PG (27.0-31.0); MEAN CORPUSCULAR VOLUME 89.5 FL (80.0-94.0); MEAN PLATELET VOLUME 8.8 FL (7.4-10.4); PLATELET COUNT 135 /CUMM (130-400); RBC DISTRIBUTION WIDTH 13.2 % (11.5-14.5); RED BLOOD CELL CT 3.33 /CUMM (4.70-6.10); WHITE BLOOD CELL COUNT 8.5 /CUMM (4.8-10.8)
[2018-01-28 05:27] LABS: HEMATOCRIT 29.8 % (42-52)
--- NOTE | 2018-01-28 08:29 | RADIOLOGY REPORT ---
EXAMINATION: XR PORTABLE CHEST CLINICAL INFORMATION: Extubated. Oral gastric tube. COMPARISON: 01/26/2015 and 01/27/2018 TECHNIQUE: Portable frontal view of the chest was obtained. FINDINGS: The tip of the endotracheal tube is approximately 5 cm above the rose. The enteric tube extends below the diaphragm, into the stomach and beyond the [id number]. No pneumothorax or pneumomediastinum. Cardiac silhouette is normal in size. Persistent patchy airspace opacities in both lungs, improved compared to 01/26/2018. No pleural effusion. No acute osseous abnormality. IMPRESSION: - Endotracheal tube is in satisfactory position. - Persistent bilateral patchy airspace opacities, similar compared to 01/27/2018 and improved compared to 01/26/2018.
--- NOTE | 2018-01-28 08:36 | PN- Resident CRCU ---
Trina Portillo 01/28/18 0836: Subjective HPI/CRCU Issues: Heroin/Cocaine overdose Aspiration Pneumonia growing Staph Mild ARDS 24 Hour Events: Overnight it was noted that his OGT was displaced after coughing, desaturated to 85%. suction tube was changed and OGT replaced and confirmed by ABD-xray. Saturation improved. Seen and examined patient this morning. Opening eyes spontaneously and nodding head appropriately when asked questions. Tmax 89.6 bp 117/59-102/54 AC 20/465/30 saturating 98% Total Intake/output 5107/2300 Objective Vital Signs & I&O Last 8 Hrs of Vitals and I&O: Intake & Output 01/28 1600 01/28 0800 01/28 0000 Intake Total 1487 1754 Output Total 550 1140 Balance 937 614 Intake, IV 1038 1736 Intake, Tube 149 18 Feeding Intake, Tube 300 Irrigant Output, 140 Gastric Drainage Output, Urine 550 1000 Laboratory Tests 01/28 Blood Gas pH (7.35 - 7.45 PH) 7.42 pCO2 (35 - 45 TORR) 38 pO2 (80 - 100 TORR) 71 L HCO3 (21 - 28 MEQ/L) 24 ABG O2 Sat (Measured) (>96.0 %) 94.0 L Carboxyhemoglobin (1.5 - 5.0 %) 0.3 L O2 Concentration % 30% Temperature (97.0 - 100.0 FARH) 98.3 O2 Delivery Method VENT Vent Mode CPAP Expiratory Pressure (CMH2O/P) 5 Pressure Support (CMH2O/P) 6 Chemistry Sodium (137 - 145 mmol/L) 136 L 135 L Potassium (3.5 - 5.1 mmol/L) 3.3 L 3.6 Chloride (98 - 107 mmol/L) 108 H Carbon Dioxide (22 - 30 mmol/L) 23 Anion Gap (5 - 16) 5 BUN (9 - 20 mg/dL) 10 Creatinine (0.7 - 1.2 mg/dL) 0.7 Estimated GFR (>60 ml/min) > 60 Glucose (65 - 99 mg/dL) 101 H Calcium (8.4 - 10.2 mg/dL) 7.0 L Phosphorus (2.5 - 4.5 mg/dL) 1.9 L 2.8 Magnesium (1.6 - 2.3 mg/dL) 1.7 Total Bilirubin (0.2 - 1.3 mg/dL) 0.8 AST (17 - 59 U/L) 31 ALT (21 - 72 U/L) 44 Albumin (3.5 - 5.0 g/dL) 2.3 L Coagulation PT (9.4 - 12.5 SEC) 11.7 INR (0.90 - 1.17) 1.07 APTT (25 - 37 SEC) 28 Hematology CBC w Diff NO MAN DIFF REQ WBC (4.8 - 10.8 /CUMM) 8.5 RBC (4.70 - 6.10 /CUMM) 3.33 L Hgb (14.0 - 18.0 G/DL) 10.1 L Hct (42 - 52 %) 29.8 L MCV (80.0 - 94.0 FL) 89.5 MCH (27.0 - 31.0 PG) 30.5 MCHC (33.0 - 37.0 G/DL) 34.0 RDW (11.5 - 14.5 %) 13.2 Plt Count (130 - 400 /CUMM) 135 MPV (7.4 - 10.4 FL) 8.8 Gran % (42.2 - 75.2 %) 72.2 Lymphocytes % (20.5 - 51.1 %) 19.3 L Monocytes % (1.7 - 9.3 %) 5.8 Eosinophils % (0 - 5 %) 2.3 Basophils % (0.0 - 2.0 %) 0.4 Absolute Granulocytes (1.4 - 6.5 /CUMM) 6.1 Absolute Lymphocytes (1.2 - 3.4 /CUMM) 1.6 Absolute Monocytes (0.10 - 0.60 /CUMM) 0.5 Absolute Eosinophils (0.0 - 0.7 /CUMM) 0.2 Absolute Basophils (0.0 - 0.2 /CUMM) 0 Miscellaneous Phlebotomy Draw Site RIGHT RADIAL Exam General Appearance: awake, sedated, intubated Head: normal appearance Respiratory: normal breath sounds Cardiovascular: regular rate/rhythm Gastrointestinal: normal bowel sounds, soft Extremities: no edema Weaning Parameters NIF: 37 Minute Volume: 13 Resp rate: 27 Vt: 554 Heart Rate: 78 Weaning Schedule Start Time: 1834 Minute Volume: 13 Resp Rate: 27 Vt: 554 Heart Rate: 78 End Time: 2009 Minute Volume: 12.1 Resp Rate: 18 Vt: 540 Heart Rate: 80 Current Medications: Current Medications Sig/Jada Start time Last Medication Dose Route Stop Time Status Admin Cyanocobalamin/ 1 BAG DAILY 01/26 0900 DC 01/27 Thiamine/Pyridoxine IV 0945 Dextrose/Water 1,000 ML Fentanyl Citrate 1,000 MCG Q16H 01/28 2130 AC Sodium Chloride 250 ML IV Fentanyl Citrate 1,000 MCG Q16H 01/28 0900 DC Sodium Chloride 250 ML IV Fentanyl Citrate 1,000 MCG Q24H 01/27 1100 DC 01/28 Sodium Chloride 250 ML IV 0538 Heparin Sodium 5,000 UNIT Q8 01/26 0600 AC 01/28 (Porcine) SC 0538 Insulin Aspart 0 Q6 01/26 0600 AC SC Lorazepam 50 MG Q16H 01/27 1600 AC 01/28 Sodium Chloride 500 ML IV 0539 Magnesium Sulfate 1 GM Q2H 01/28 0930 UNVr Dextrose/Water 100 ML IV 01/28 1329 Multivitamins 15 ML DAILY 01/27 1055 AC 01/27 PO 1134 Non-Formulary 0 SEE ADMIN CRITERIA 01/28 0945 UNVr Medication ANY Pantoprazole Sodium 40 MG DAILY 01/26 0900 AC 01/28 IV 0925 Phosphate 500 MG Q1 01/27 1000 DC PO 01/27 1101 Potassium Chloride 40 MEQ BID 01/28 0900 AC PO Sodium Chloride 1,000 ML Q13H 01/26 1130 DC 01/28 IV 0538 Sodium Phosphate 15 mMol Q1 01/27 1100 DC Sodium Chloride 250 ML IV 01/27 1159 Sodium Phosphate 15 mMol ONCE ONE 01/27 1100 DC 01/27 Sodium Chloride 250 ML IV 01/27 1504 1243 Vancomycin HCl 2,000 MG Q12 01/27 1100 AC 01/27 Sodium Chloride 500 ML IV 2035 CXR Findings: SERVICE DATE: 01/28/18 EXAM TYPE: RAD - XRY-PORTABLE CHEST XRAY FINDINGS: The tip of the endotracheal tube is approximately 5 cm above the rose. The enteric tube extends below the diaphragm, into the stomach and beyond the [id number]-ab-odrg. No pneumothorax or pneumomediastinum. Cardiac silhouette is normal in size. Persistent patchy airspace opacities in both lungs, improved compared to 01/26/2018. No pleural effusion. No acute osseous abnormality. IMPRESSION: - Endotracheal tube is in satisfactory position. - Persistent bilateral patchy airspace opacities, similar compared to 01/27/2018 and improved compared to 01/26/2018. Impression/Plan Impression/Problem List Impression: 32-year-old gentleman with a past medical history of substance use disorder with multiple inpatient treatments, history of incarceration for substance abuse, current admission for acute hypoxic respiratory failure secondary to heroin and cocaine overdose. Respiratory: acute hypoxemic respiratory failure, aspiration PNA, Mild ARDS, -On exam lungs are more clear -Intubated and sedated, continue to taper IV ativan, continue fentanyl drip -currently of FiO2 of 30% and peep of 5 -continue weaning trials. Infectious Disease: suspected aspiration pneumonia -afebrile overnight, no leukocytosis -Urine antigens negative for strep or legionella -Currenly on Unasyn day 4 and vancomycin day 2, staph aureus in sputum growing large gram positive rods in blood culture likely contaminatin, pending sensitivities. -Hepatitis C serology positive, will follow-up outpatient GI for workup -Cultures growing staph aureus, without sensitivities yet. Cardiovascular/Circulation: cocaine use, r/o ACS -NSR on the monitor -Troponin and EKG negative Hematological: H/H 10.1/29.5 possibly hemodilutional, will continue to monitor Metabolic: Tox positive for Cocaine, Opiates -FS 108,99,121 on insulin sliding scale -Mild transaminitis which is resolving -Hypophosphatemia/hypokalemia/hypermag, will aggressively replete Alimentary: -will keep NPO in consideration of overnight event -IVF D5w at 75cc/hr with Kphos -s/p Thiamine, MVI Neurologic: sedated -Sedated with Ativan drip and Fentanyl drip. Maintain SAS at 2 -CT head done yesterday negative Nephro: Mild PAUL, resolved -Munoz in place, monitor I/O -UOP should be at least 30cc/hr DVT PPX IV access Full Code Problem List: 1. Respiratory failure 2. Polysubstance abuse 3. Acute kidney injury Pain Ratin Tomorrow's Labs & Rationales: cbc/icu Plan DVT/Prophylaxis: mechanical, pharmacological Dontrell Fagan MD 01/28/18 1234: Attending MD Review Statement Attending Sign Off Attending Cosign Statement: I have: examined this patient, reviewed [facility] EMR data, personally reviewd images, discussd w/resident/PA/BEHAVIOR SUPPORT SPECIALIST, discussed mgmt plan w/kate, discussed mgmt plan w/CM, discussed mgmt plan w/pt, agreed w/resident/PA/BEHAVIOR SUPPORT SPECIALIST, amended to note. Other Findings: Impression 32 year old man * Acute severe, hypoxemic respiratory failure secondary to aspiration pneumonia * Heroin and cocaine overdose * History of alcohol dependence * resolved PAUL * vomiting * large gram positive rods in blood culture Plan Respiratory -cxr persistent bilateral patchy airspace opacities overall improved -initially presentation was consistent with moderate ARDS - however cxr improved and since abg fio2 decreased -CMV 465/22/5/35% - maintain o2 sats above 92% ID -staph aureus in sputum and large gram positive rods in blood culture (possibly contaminant) -receiving Vancomycin -HCV ab reactive -would require GI consultation on an outpatient basis CVS -f/u baseline ECHO Heme -monitor coags, cbc Metabolic -ins/outs -creatinine resolved -replete phosphate aggressively Alimentary -hold OGT given vomiting Neuro -fentanyl and ativan drips -mvi, folate, thimaine DVT prophylaxis at all times Attending time spent 35 min
[2018-01-29 04:49] LABS: ABSOLUTE BASOPHIL COUNT 0 /CUMM (0.0-0.2); ABSOLUTE EOSINOPHIL COUNT 0.2 /CUMM (0.0-0.7); ABSOLUTE GRANULOCYTE CT 4.5 /CUMM (1.4-6.5); ABSOLUTE LYMPH COUNT 1.7 /CUMM (1.2-3.4); ABSOLUTE MONOCYTE COUNT 0.5 /CUMM (0.10-0.60); BASOPHIL % 0.4 % (0.0-2.0); EOSINOPHIL % 3.2 % (0-5); GRANULOCYTE % 65.7 % (42.2-75.2); HEMATOCRIT 30.2 % (42-52); MEAN CORPUSCULAR HGB 30.7 PG (27.0-31.0); MEAN CORPUSCULAR HGB CONC 34.6 G/DL (33.0-37.0); MEAN CORPUSCULAR VOLUME 88.7 FL (80.0-94.0); MEAN PLATELET VOLUME 8.9 FL (7.4-10.4); PLATELET COUNT 156 /CUMM (130-400); RBC DISTRIBUTION WIDTH 13.1 % (11.5-14.5); RED BLOOD CELL CT 3.41 /CUMM (4.70-6.10); WHITE BLOOD CELL COUNT 6.9 /CUMM (4.8-10.8)
--- NOTE | 2018-01-29 07:25 | PN- Resident CRCU ---
Subjective HPI/CRCU Issues: Heroin/Cocaine overdose Aspiration Pneumonia on ventilator 24 Hour Events: Overnight had a 7 beat run of V tach that terminated spontaneously. Stable vitals otherwise. Continues to be sedated and ventilated, on Ativan 3mg/hr and Fentanyl 62.5mcg/hr. SAS scores at 4. Started on tube feeds monday night. Monday morning attempted to pull OG tube, tube feedings were found in oropharynx and thus tube feeds were held. OGT was replaced, and confirmed by abdominal xray. Did not spike fevers overnight, no leukocytosis this morning. Cultures are growing pansensitive staph, vancomycin discontinued this morning. Objective Vital Signs & I&O Last 8 Hrs of Vitals and I&O: Vital Signs Date Time Temp Pulse Resp B/P B/P Pulse O2 O2 Flow FiO2 Mean Ox Delivery Rate 01/29 0823 30 01/29 0800 99.1 66 22 110/60 95 Ventilator 30% 01/29 0800 96 Ventilator 30% 01/29 0537 30 01/29 0400 98 Ventilator 30% 01/29 0321 30 01/29 0042 30 01/29 0000 94 Ventilator 30% 01/28 2354 98.8 64 20 100/60 94 Ventilator 30% 01/28 2154 30 16 2000 95 Ventilator 30% 01/28 1900 30 01/28 1605 30 01/28 1600 96 Ventilator 30% 01/28 1559 98.5 68 22 116/66 97 Ventilator 30% 01/28 1338 30 01/28 1200 98 Ventilator 30% 01/28 1146 30 Intake & Output 01/29 1600 01/29 0800 01/29 0000 Intake Total 1046 885 Output Total 850 1999 Balance 196 -1115 Intake, IV 1046 885 Intake, Oral 0 0 Number 0 0 Bowel Movements Output, Urine 850 1999 Patient 226 lb Weight Weight Bed scale Measurement Method Intake & Output 01/29 1600 Intake Total Output Total Balance Patient 226 lb Weight Weight Bed scale Measurement Method Exam General Appearance: no apparent distress, sedated, intubated Head: healing ecchymosis to L eye Ears, Nose, Throat: ET tube and OG tube in place Respiratory: normal breath sounds, lungs clear Cardiovascular: regular rate/rhythm, normal peripheral pulses Gastrointestinal: soft, non-tender Extremities: normal inspection, no edema, soft restraints in place Skin: intact Skin Temp/Moisture Exam: Warm/Dry Weaning Parameters NIF: 15 Minute Volume: 9.88 Resp rate: 23 Vt: 455 Heart Rate: 70 Weaning Schedule Start Time: 1645 Minute Volume: 10.1 Resp Rate: 21 Vt: 443 Heart Rate: 70 End Time: 1829 Minute Volume: 10.2 Resp Rate: 15 Vt: 629 Heart Rate: 74 Current Medications: Current Medications Sig/Jada Start time Last Medication Dose Route Stop Time Status Admin Ampicillin Sodium/ 3,000 MG Q6H 01/28 1600 01/29 Sulbactam Sodium IV 0333 Sodium Chloride 100 ML Dextrose/Sodium 1,000 ML Q13H 01/28 1100 MO 01/28 Chloride IV 1121 Fentanyl Citrate 1,000 MCG Q16H 01/28 2130 01/28 Sodium Chloride 250 ML IV 2332 Heparin Sodium 5,000 UNIT Q8 01/26 0600 01/29 (Porcine) SC 0530 Insulin Aspart 0 Q6 01/26 0600 SC Lorazepam 50 MG Q16H 01/27 1600 01/28 Sodium Chloride 500 ML IV 2336 Magnesium Sulfate 1 GM ONCE ONE 01/29 0545 MO 01/29 Dextrose/Water 100 ML IV 01/29 0644 0542 Magnesium Sulfate 1 GM Q2H 01/28 0930 MO 01/28 Dextrose/Water 100 ML IV 01/28 1329 1230 Multivitamins 15 ML DAILY 01/27 1055 01/29 PO 0901 Non-Formulary 0 SEE ADMIN CRITERIA 01/28 0945 CAN Medication ANY Nystatin 5 ML 4 TIMES/DAY 01/28 1840 01/29 PO 0902 Pantoprazole Sodium 40 MG DAILY 01/26 0900 01/29 IV 0901 Phenol 2 SPRAY Q2P PRN 01/29 0845 AC EXT Potassium Chloride 20 MEQ Q13H 01/28 1630 01/28 Dextrose/Sodium 1,000 ML IV 01/29 1829 1726 Chloride Potassium Chloride 20 MEQ DAILY 01/28 1550 CAN IV 01/29 0901 Potassium Chloride 40 MEQ BID 01/28 0900 DC PO Potassium Phosphate 15 mMol BID 01/28 1100 DC 01/28 Dextrose/Water 250 ML IV 2103 Sodium Chloride 1,000 ML Q13H 01/26 1130 DC 01/28 IV 0538 Vancomycin HCl 1,500 MG Q12H 01/28 1300 MO 01/29 Sodium Chloride 250 ML IV 0025 Vancomycin HCl 1,500 MG Q12 01/28 1130 CAN IV Vancomycin HCl 1,000 MG ONCE ONE 01/28 1115 CAN Sodium Chloride 250 ML IV 01/28 1214 Vancomycin HCl 2,000 MG Q12 01/27 1100 DC 01/27 Sodium Chloride 500 ML IV 2034 Impression/Plan Impression/Problem List Impression: Mr Crowell is a 32-year-old male with a past medical history of substance abuse with multiple inpatient treatments, was incarcerated for substance abuse, overdose on heroin and cocaine by snorting yesterday with desaturations, woke up after 2 mg Narcan 2, vomited in the ED and was intubated, sedated and intubated at this time. He was borderline febrile on monday, and is on Unasyn day 4. Respiratory: acute hypoxemic respiratory failure, aspiration PNA growing S. aureus pansensitive -On exam lungs are more clear -Intubated and sedated, TV465/RR20/PEEP5/FiO2 30%; will change vent settings today to 14 breaths/minute -Nebs/TRC prn -Continue to wean today, potential extubation either today or tomorrow -CXR pending -PPI for intubation Infectious Disease: MSSA pneumonia -Leukocytes 6.9 without bands; afebrile in the am -Urine antigens negative for strep or legionella -On Unasyn 1500mg IV q6, day 4; received Vancomycin for two days which was discontinued this morning -Hepatitis C serology positive, will follow-up outpatient GI for workup -Cultures growing staph aureus [place] sensitive. Cardiovascular/Circulation: cocaine use, r/o ACS -NSR on the monitor -Troponin and EKG negative Hematological: stable -H/H 11.9/34.8 which patient had ingested prior to admission) Metabolic: Tox positive for Cocaine, Opiates -Had high blood surgars, on insulin sliding scale, past FS 155,103,109 -Mild transaminitis resolved -Phosphorus now WNL -Will replete lytes as needed -Monitor with ICU bundle Alimentary: -NPO as intubated -IVF 75cc/hr -s/p Thiamine, MVI Neurologic: sedated -Sedated with Ativan drip and Fentanyl drip. Maintain SAS at 4 -CT head negative -Will decrease sedation, tapering off ativan first Nephro: Mild PAUL, resolved -Munoz in place, monitor I/O -UOP should be at least 30cc/hr DVT PPX IV access Full Code Problem List: 1. Polysubstance abuse 2. Aspiration pneumonia 3. Opiate overdose Pain Ratin Tomorrow's Labs & Rationales: cbc, ICU bundle Plan DVT/Prophylaxis: mechanical, pharmacological
[2018-01-29 08:00] VITALS: BP 110/60
--- NOTE | 2018-01-29 08:53 | PN- CRCU ---
Subjective HPI/Critical Care Issues: Weekend events reviewed. The patient remains intubated, and sedated. He is on an Ativan drip at 3 mg/h. He is on a fentanyl drip at 62.5 mg/h. He is undergoing breathing trials as his oxygenation has improved to 30%. Attempts at extubation have not been made as the patient has vomited/had tube feeds suctioned from his oral cavity. He has evidence of thrush nystatin will be started. Respiratory culture is sensitive for MSSA, and one blood culture is positive for gram-positive rods. Final identification is pending. The patient remains on IV Unasyn, day 3. His T-max over the past 24 hours is 99.2. Objective Current Medications: Current Medications Sig/Jada Start time Last Medication Dose Route Stop Time Status Admin Ampicillin Sodium/ 3,000 MG Q6H 01/28 1600 01/29 Sulbactam Sodium IV 0333 Sodium Chloride 100 ML Dextrose/Sodium 1,000 ML Q13H 01/28 1100 DC 01/28 Chloride IV 1121 Fentanyl Citrate 1,000 MCG Q16H 01/28 2130 01/28 Sodium Chloride 250 ML IV 2332 Fentanyl Citrate 1,000 MCG Q16H 01/28 0900 DC Sodium Chloride 250 ML IV Fentanyl Citrate 1,000 MCG Q24H 01/27 1100 DC 01/28 Sodium Chloride 250 ML IV 0538 Heparin Sodium 5,000 UNIT Q8 01/26 0600 01/29 (Porcine) SC 0530 Insulin Aspart 0 Q6 01/26 0600 AC SC Lorazepam 50 MG Q16H 01/27 1600 01/28 Sodium Chloride 500 ML IV 2336 Magnesium Sulfate 1 GM ONCE ONE 01/29 0545 PR 01/29 Dextrose/Water 100 ML IV 01/29 0644 0542 Magnesium Sulfate 1 GM Q2H 01/28 0930 PR 01/28 Dextrose/Water 100 ML IV 01/28 1329 1230 Multivitamins 15 ML DAILY 01/27 1055 AC 01/27 PO 1134 Non-Formulary 0 SEE ADMIN CRITERIA 01/28 0945 CAN Medication ANY Nystatin 5 ML 4 TIMES/DAY 01/28 1840 AC 01/28 PO 2103 Pantoprazole Sodium 40 MG DAILY 01/26 0900 AC 01/28 IV 0925 Potassium Chloride 20 MEQ Q13H 01/28 1630 01/28 Dextrose/Sodium 1,000 ML IV 01/29 1829 1726 Chloride Potassium Chloride 20 MEQ DAILY 01/28 1550 CAN IV 01/29 0901 Potassium Chloride 40 MEQ BID 01/28 0900 DC PO Potassium Phosphate 15 mMol BID 01/28 1100 DC 01/28 Dextrose/Water 250 ML IV 2103 Sodium Chloride 1,000 ML Q13H 01/26 1130 DC 01/28 IV 0538 Vancomycin HCl 1,500 MG Q12H 01/28 1300 AC 01/29 Sodium Chloride 250 ML IV 0025 Vancomycin HCl 1,500 MG Q12 01/28 1130 CAN IV Vancomycin HCl 1,000 MG ONCE ONE 01/28 1115 CAN Sodium Chloride 250 ML IV 01/28 1214 Vancomycin HCl 2,000 MG Q12 01/27 1100 DC 01/27 Sodium Chloride 500 ML IV 2034 Exam General Appearance: arousable, sedated, intubated, appears comfortable Head: normal appearance, atraumatic Respiratory: course scattered anterior ronchi Cardiovascular: regular rate/rhythm, S1 and S2 heard Gastrointestinal: normal bowel sounds, soft, non-tender Extremities: no edema Vital Signs & I&O Last 24 Hrs of Vitals and I&O: Vital Signs Date Time Temp Pulse Resp B/P B/P Pulse O2 O2 Flow FiO2 Mean Ox Delivery Rate 01/29 0823 30 01/29 0800 99.1 66 22 110/60 95 Ventilator 30% 01/29 0800 96 Ventilator 30% 01/29 0537 30 01/29 0400 98 Ventilator 30% 01/29 0321 30 01/29 0042 30 01/29 0000 94 Ventilator 30% 01/28 2354 98.8 64 20 100/60 94 Ventilator 30% 01/28 2154 30 01/28 2000 95 Ventilator 30% 01/28 1900 30 01/28 1605 30 01/28 1600 96 Ventilator 30% 01/28 1559 98.5 68 22 116/66 97 Ventilator 30% 01/28 1338 30 01/28 1200 98 Ventilator 30% 01/28 1146 30 01/28 0840 30 Intake & Output 01/29 1600 01/29 0800 01/29 0000 Intake Total 1046 885 Output Total 850 1999 Balance 196 -1115 Intake, IV 1046 885 Intake, Oral 0 0 Number 0 0 Bowel Movements Output, Urine 850 1999 Patient 226 lb Weight Weight Bed scale Measurement Method Results Last 24 Hrs of Lab Results: Laboratory Tests 01/29/18 0339: Anion Gap 8, Estimated GFR > 60, Glucose 102 H, Calcium 7.5 L, Phosphorus 2.8, Magnesium 1.8, Total Bilirubin 0.6, AST 25, ALT 37, Albumin 2.6 L, CBC w Diff NO MAN DIFF REQ, RBC 3.41 L, MCV 88.7, MCH 30.7, MCHC 34.6, RDW 13.1, MPV 8.9, Gran % 65.7, Lymphocytes % 24.2, Monocytes % 6.5, Eosinophils % 3.2, Basophils % 0.4, Absolute Granulocytes 4.5, Absolute Lymphocytes 1.7, Absolute Monocytes 0.5 , Absolute Eosinophils 0.2, Absolute Basophils 0 01/28/18 1130: Urinalysis LIGHT H, Urine Color YEL, Urine Clarity HAZY H, Urine pH 6.5, Ur Specific [place] 1.020, Urine Protein NEG, Urine Ketones NEG, Urine Nitrite NEG, Urine Bilirubin NEG, Urine Urobilinogen 1.0, Ur Leukocyte Esterase NEG, Ur Microscopic SEDIMENT EXAMINED, Urine RBC 50-75 H, Urine WBC 3-5 H, Urine Bacteria RARE H, Urine Mucus MOD H, Urine Hemoglobin MOD H, Urine Glucose NEG 01/28/18 1130: Urine Osmolality 642, Ur Random Creatinine 157.7, Ur Random Sodium 108 H, Ur Random Potassium 11.6, Fraction Sodium Excret 0.4 Diagnostic Data CXR Findings: Pending Impression/Plan Impression/Plan Impression/Plan: The patient is a 32-year-old male admitted on 01/26/2018, with acute hypoxemic respiratory failure in the setting of cocaine and heroin overdose, and chronic substance abuse. The patient is currently being treated for aspiration pneumonia/pneumonitis. ARDS is less likely as the patient continues to improve. Recommendations: Respiratory: Ongoing respiratory failure, tolerating weaning trials, chest x- rays have been stable * Vent change: Decrease respiratory rate to 14 breaths per minute. * Continue weaning trials as tolerated. * Will attempt extubation when patient is more awake and alert. * Continue nebs/TRC. * O2 for saturations greater than 92%. * Check a.m. chest x-ray this morning to ensure proper positioning of lines and tubes. * Sputum culture is positive for MSSA, on IV Unasyn day 4, will continue. Cardiac: In normal sinus rhythm, normotensive, no reported issues. * Echocardiogram ordered, results pending. Will need to follow-up results. Hematologic: Stable hemoglobin, no evidence of bleeding, repeat coags pending. Metabolic: * Blood sugars stable. * Remains on Accu-Cheks. * Electrolytes being monitored and repleted as necessary. Neurologic: * The patient remains sedated on Ativan and fentanyl drips. * Decrease Ativan drip to 1 mg/h. * Will continue to slowly decrease Ativan down to off, followed by fentanyl drip. * Maintain SAS score of 4. * Will consider extubation when the patient is much more awake and alert. * Monitor for symptoms of withdrawal. Nephro: Mild AK I resolved, no current issues. ID: Blood culture positive for gram positive rods in one set, sputum positive for MSSA. * Day for of IV Unasyn, will continue. * Follow-up culture results. * GPR is likely a contaminant. * Monitor for fevers, sepsis. Alimentary, fluid and electrolytes: * The patient remains n.p.o. * Tube feeds are on hold due to possible vomiting. * Multivitamin, thiamine and folate given. * IV fluids: D5NS with KCL 20meq/L - decrease to 50 ml/hr. Vent bundle: DVT and GI prophylaxis at all times.
--- NOTE | 2018-01-29 12:33 | ECHOCARDIOGRAM REPORT ---
KY HAMMOND Age: 32 : 1985 Gender: M Exam Date: 01/29/2018 09:57 Exam Location: [facility] Ht (in): 72 Wt (lb): 219 BSA: 2.27 BP: 107 / 58 Ordering Physician: Allen Kong MD Referring Physician: Allen Kong MD Technologist: Beck Carver [facility] Room Number: 107-1 Indications: Infective pericarditis Rhythm: Sinus Technical Quality: fair FINDINGS Left Ventricle Mild left ventricular dilatation. Left ventricular wall thickness borderline to mildly increased. Normal left ventricular ejection fraction estimated at 60-65%. Right Ventricle Normal right ventricular size and function. Right Atrium Normal right atrial size. Left Atrium Left atrial size at the upper limits of normal. Mitral Valve Mitral valve not well visualized, grossly normal. Trace to mild mitral regurgitation. Aortic Valve Aortic valve not well visualized, grossly normal. Tricuspid Valve Tricuspid valve is normal in structure and function. Trace to mild tricuspid regurgitation. Pulmonic Valve Pulmonic valve not well visualized, grossly normal. Pericardium No pericardial effusion. Great Vessels Normal size aortic root. CONCLUSIONS Mildly dilated left ventricle with borderline concentric hypertrophy. Normal left ventricular systolic function. No significant valvular abnormalities noted . Technically somewhat suboptimal study but no definitive evidence of vegetations are noted on the study. No pericardial effusion. Jose Alfredo Cooper M.D. (Electronically Signed) Final Date: 29 January 2018 12:29 MEASUREMENTS (Male / Female) Normal Values 2D ECHO LV Diastolic Diameter PLAX 6.0 cm 4.2 - 5.9 / 3.9 - 5.3 cm LV Systolic Diameter PLAX 4.1 cm 2.1 - 4.0 cm LV Fractional Shortening PLAX 31.7 % 25 - 46 % LV Ejection Fraction 2D Teich 58.8 % IVS Diastolic Thickness 1.1 cm LVPW Diastolic Thickness 0.9 cm LV Relative Wall Thickness 0.3 RV Internal Dim ED PLAX 2.4 cm 1.9 - 3.8 cm LVOT Diameter 2.6 cm Aortic Root Diameter 3.4 cm LA Systolic Diameter LX 3.6 cm 3.0 - 4.0 / 2.7 - 3.8 cm LA Volume 50.0 cm 18 - 58 / 22 - 52 cm DOPPLER AV Peak Velocity 146.0 cm/s AV Peak Gradient 8.5 mmHg AV Mean Velocity 98.9 cm/s AV Mean Gradient 4.0 mmHg AV Velocity Time Integral 29.9 cm LVOT Peak Velocity 114.0 cm/s LVOT Peak Gradient 5.2 mmHg LVOT Mean Velocity 71.2 cm/s LVOT Mean Gradient 2.0 mmHg LVOT Velocity Time Integral 23.8 cm LVOT Stroke Volume 126.4 cm AV Area Cont Eq vti 4.2 cm AV Area Cont Eq pk 4.1 cm MV Peak Velocity 88.2 cm/s MV Peak Gradient 3.1 mmHg MV Mean Velocity 51.0 cm/s MV Mean Gradient 1.0 mmHg Mitral E Point Velocity 74.5 cm/s Mitral A Point Velocity 42.9 cm/s Mitral E to A Ratio 1.7 MV PHT Velocity 89.6 cm/s MV Deceleration [place] 346.0 cm/s MV Pressure Half Time 77.7 ms MV Area PHT 2.8 cm MV Deceleration Time 246.0 ms PV Peak Velocity 117.0 cm/s PV Peak Gradient 5.5 mmHg PV Mean Velocity 77.4 cm/s PV Mean Gradient 3.0 mmHg PV Velocity Time Integral 24.2 cm LV E' Lateral Velocity 12.4 cm/s Mitral E to LV E' Lateral Ratio 6.0 LV E' Septal Velocity 10.9 cm/s Mitral E to LV E' Septal Ratio 6.8
--- NOTE | 2018-01-29 12:40 | RADIOLOGY REPORT ---
EXAMINATION: XR PORTABLE CHEST CLINICAL INFORMATION: Intubated. Aspiration pneumonia. COMPARISON: 01/27/2018 and 01/28/2018 TECHNIQUE: Portable frontal view of the chest was obtained. FINDINGS: Endotracheal tube is approximately 7 cm above the rose. Enteric tube is poorly visualized; the position of its tip cannot be determined. Lungs are symmetrically expanded. The patchy, hazy opacities in middle and lower lung zones are not appreciably changed compared to 01/28/2018. No pneumothorax, pleural effusion or other new abnormality. IMPRESSION: - Endotracheal tube is approximately 7 cm above the rose. - The enteric tube is suboptimally visualized. - Patchy bilateral pulmonary opacities/pneumonia, unchanged compared to 01/28/2018.
[2018-01-29 16:00] VITALS: BP 122/60
[2018-01-29 20:00] VITALS: BP 132/78
--- NOTE | 2018-01-29 20:18 | RADIOLOGY REPORT ---
EXAMINATION: XR PORTABLE CHEST CLINICAL INFORMATION: Extubation. COMPARISON: Portable chest 01/29/2018 TECHNIQUE: Portable frontal view of the chest was obtained. 7:40 PM FINDINGS: Endotracheal tube seen on prior chest x-ray has been removed. The bilateral airspace opacities are improving. Airspace opacities are similar to the chest x-ray earlier today but improved since yesterday's exam. The patient has history of aspiration. The lung opacities seen in both lungs were felt to be infectious or inflammatory, however the rapid clearing is seen between the chest x-ray of January 28 and January 29 would suggest a some element of a cardiogenic etiology. I suspect that the airspace opacities were therefore in part related to pulmonary vascularity congestion. There is no pleural effusions. IMPRESSION: Status post extubation. Continued clearing of the bilateral airspace opacities.
[2018-01-29 22:00] VITALS: BP 133/70
[2018-01-30] VITALS (7 sets, daily range): BP systolic 102–123; BP diastolic 63–80
[2018-01-30 04:57] LABS: ABSOLUTE BASOPHIL COUNT 0 /CUMM (0.0-0.2); ABSOLUTE EOSINOPHIL COUNT 0.3 /CUMM (0.0-0.7); ABSOLUTE GRANULOCYTE CT 4.1 /CUMM (1.4-6.5); ABSOLUTE LYMPH COUNT 1.7 /CUMM (1.2-3.4); ABSOLUTE MONOCYTE COUNT 0.5 /CUMM (0.10-0.60); BASOPHIL % 0.6 % (0.0-2.0); EOSINOPHIL % 4.3 % (0-5); GRANULOCYTE % 62.1 % (42.2-75.2); MEAN CORPUSCULAR HGB 30.2 PG (27.0-31.0); MEAN CORPUSCULAR HGB CONC 33.8 G/DL (33.0-37.0); MEAN CORPUSCULAR VOLUME 89.3 FL (80.0-94.0); MEAN PLATELET VOLUME 8.6 FL (7.4-10.4); PLATELET COUNT 215 /CUMM (130-400); RED BLOOD CELL CT 4.16 /CUMM (4.70-6.10); WHITE BLOOD CELL COUNT 6.6 /CUMM (4.8-10.8)
[2018-01-30 05:04] LABS: HEMATOCRIT 37.1 % (42-52)
--- NOTE | 2018-01-30 07:18 | PN- Resident CRCU ---
Subjective HPI/CRCU Issues: Heroin/Cocaine overdose s/p extubation 24 Hour Events: Patient is extubated yesterday at 2:45 PM, tolerated well, good saturations overnight, vitally stable with no events on telemetry noted. This morning patient denies complaints, asks when he may be able to leave. Patient was informed that he is currently being treated for pneumonia, and just recently overdosed, so likely he will not leave today. Denies fevers/chills/night sweats /chest pain/abdominal pain/urinary symptoms/lower extremity edema Objective Vital Signs & I&O Last 8 Hrs of Vitals and I&O: Vital Signs Date Time Temp Pulse Resp B/P B/P Pulse O2 O2 Flow FiO2 Mean Ox Delivery Rate 01/30 0400 96.7 66 20 114/70 01/30 0200 57 22 111/67 01/30 0000 96.8 61 20 110/80 01/30 0000 96.8 61 20 110/80 92 Nasal 1.0L Cannula 01/30 0000 92 Nasal 1.0L Cannula 01/29 2200 66 23 133/70 01/29 2000 97.4 70 26 132/78 01/29 2000 97 Nasal 1.0L Cannula 01/29 1600 98.4 66 24 122/60 94 Nasal 1.0L Cannula 01/29 1600 95 Nasal 1.0L Cannula 01/29 1200 96 Ventilator 30% 01/29 1106 30 01/29 0823 30 01/29 0800 99.1 66 22 110/60 95 Ventilator 30% 01/29 0800 96 Ventilator 30% Intake & Output 01/30 0800 01/30 0000 01/29 1600 Intake Total 605 1132 Output Total 1200 1999 Balance -595 -868 Intake, IV 485 1072 Intake, Oral 120 60 Number 0 0 Bowel Movements Output, 250 Gastric Drainage Output, Urine 1200 1750 Patient 226 lb Weight Weight Bed scale Measurement Method Exam General Appearance: no apparent distress, alert, awake, comfortable Head: healing ecchymosis L eye Respiratory: no respiratory distress, inspiratory/expiratory wheeze RLL Cardiovascular: regular rate/rhythm, normal peripheral pulses Gastrointestinal: soft, non-tender Extremities: normal inspection, no edema Cranial Nerves: normal speech Skin: intact Skin Temp/Moisture Exam: Warm/Dry Weaning Parameters NIF: 34 Minute Volume: 11.5 Resp rate: 19 Vt: 578 Heart Rate: 65 Weaning Schedule Start Time: 0810 Minute Volume: 11.7 Resp Rate: 24 Vt: 612 Heart Rate: 64 End Time: 1030 Minute Volume: 10.8 Resp Rate: 17 Vt: 520 Heart Rate: 72 Start Time: 1230 Heart Rate: 72 Current Medications: Current Medications Sig/Jada Start time Last Medication Dose Route Stop Time Status Admin Acetaminophen 0 .STK-MED ONE 01/29 2034 DC IV Acetaminophen 1,000 MG Q6P PRN 01/29 2030 01/29 N/A 1 UNIT IV 2037 Ampicillin Sodium/ 3,000 MG Q6H 01/28 1600 01/30 Sulbactam Sodium IV 1007 Sodium Chloride 100 ML Fentanyl Citrate 1,000 MCG Q16H 01/28 2130 [place] 01/28 Sodium Chloride 250 ML IV 2332 Heparin Sodium 5,000 UNIT Q8 01/26 0600 01/30 (Porcine) SC 0705 Insulin Aspart 0 Q6 01/26 0600 SC Lorazepam 50 MG Q16H 01/27 1600 [place] 01/28 Sodium Chloride 500 ML IV 2336 Melatonin 5 MG AT BEDTIME 01/30 2100 DC PO Melatonin 0 .STK-MED ONE 01/29 2219 DC PO Melatonin 5 MG AT BEDTIME 01/29 2215 01/29 PO 2218 Multivitamins 15 ML DAILY 01/27 1055 01/30 PO 0901 Nicotine 21 MG DAILY 01/29 1259 01/30 TOP 1047 Nystatin 5 ML 4 TIMES/DAY 01/28 1840 01/30 PO 0900 Pantoprazole Sodium 40 MG DAILY 01/26 0900 01/30 IV 0906 Phenol 2 SPRAY Q2P PRN 01/29 0845 01/29 EXT 1658 Potassium Chloride 20 MEQ Q20H 01/29 1145 [place] 01/29 Dextrose/Sodium 1,000 ML IV 01/30 0744 1155 Chloride Potassium Chloride 20 MEQ Q13H 01/28 1630 [place] 01/28 Dextrose/Sodium 1,000 ML IV 01/29 1829 1726 Chloride Impression/Plan Impression/Problem List Impression: Mr Crowell is a 32-year-old male with a past medical history of substance abuse with multiple inpatient treatments, was incarcerated for substance abuse, overdose on heroin and cocaine by snorting yesterday with desaturations, woke up after 2 mg Narcan 2, vomited in the ED and was intubated, sedated and intubated at this time. He was borderline febrile on monday, and is on Unasyn day 5 ( started 01/26/18). He did have 7 beats of nonsustained ventricular tachycardia on telemetry strip at 0328 on 01/29. He is s/p extubation on 01/29/18 at 1445 which he tolerated well and is pending swallow eval today to restart feedings He can be downgraded to Telemetry floor today. Cardiology was consulted about the abnormal telemetry findings on 01/29. Respiratory: acute hypoxemic respiratory failure, aspiration PNA growing S. aureus pansensitive -He is status post extubation on 01/29/18 -Nebs/TRC prn -Good saturations on room air at this time Infectious Disease: MSSA pneumonia -Leukocytes 6.6 without bands; afebrile in the am -Urine antigens negative for strep or legionella -On Unasyn 1500mg IV q6, day 5; received Vancomycin for two days which was discontinued yesterday morning -Hepatitis C serology positive, will follow-up outpatient GI for workup -Cultures growing staph aureus [place] sensitive. Cardiovascular/Circulation: cocaine use, r/o ACS -NSR on the monitor -Troponin and EKG negative -Normal ejection fraction and no evidence of vegetations on echocardiogram Hematological: stable -H/H 12.5/37.1, yesterday's was 11.9/34.8 which patient had ingested prior to admission) Metabolic: Tox positive for Cocaine, Opiates -Had high blood surgars, on insulin sliding scale -Mild transaminitis resolved -Phosphorus now WNL -Will replete lytes as needed -Monitor with ICU bundle Alimentary: -NPO pending swallow eval -IVF 75cc/hr -s/p Thiamine, MVI Neurologic: Intact -CT head negative -Off sedation, no focal neuro deficits noted. Nephro: Mild PAUL, resolved -Munoz in place, which will be discontinued today DVT PPX IV access Full Code Problem List: 1. Polysubstance abuse 2. Aspiration pneumonia Pain Ratin Tomorrow's Labs & Rationales: cbc, bep Plan DVT/Prophylaxis: mechanical, pharmacological
--- NOTE | 2018-01-30 09:08 | PN- CRCU ---
Subjective HPI/Critical Care Issues: Patient's respiratory status is stable postextubation. Objective Current Medications: Current Medications Sig/Jada Start time Last Medication Dose Route Stop Time Status Admin Acetaminophen 0 .STK-MED ONE 01/29 2034 DC IV Acetaminophen 1,000 MG Q6P PRN 01/29 2030 01/29 N/A 1 UNIT IV 2037 Ampicillin Sodium/ 3,000 MG Q6H 01/28 1600 01/30 Sulbactam Sodium IV 0437 Sodium Chloride 100 ML Fentanyl Citrate 1,000 MCG Q16H 01/28 2130 [place] 01/28 Sodium Chloride 250 ML IV 2332 Heparin Sodium 5,000 UNIT Q8 01/26 0600 01/30 (Porcine) SC 0705 Insulin Aspart 0 Q6 01/26 0600 SC Lorazepam 50 MG Q16H 01/27 1600 [place] 01/28 Sodium Chloride 500 ML IV 2336 Melatonin 5 MG AT BEDTIME 01/30 2100 DC PO Melatonin 0 .STK-MED ONE 01/29 2219 DC PO Melatonin 5 MG AT BEDTIME 01/29 2215 01/29 PO 2218 Multivitamins 15 ML DAILY 01/27 1055 01/29 PO 0901 Nicotine 21 MG DAILY 01/29 1259 01/29 TOP 1659 Nystatin 5 ML 4 TIMES/DAY 01/28 1840 01/29 PO 2038 Pantoprazole Sodium 40 MG DAILY 01/26 0900 01/29 IV 0901 Phenol 2 SPRAY Q2P PRN 01/29 0845 01/29 EXT 1658 Potassium Chloride 20 MEQ Q20H 01/29 1145 [place] 01/29 Dextrose/Sodium 1,000 ML IV 01/30 0744 1155 Chloride Potassium Chloride 20 MEQ Q13H 01/28 1630 [place] 01/28 Dextrose/Sodium 1,000 ML IV 01/29 1829 1726 Chloride Vancomycin HCl 1,500 MG Q12H 01/28 1300 [place] 01/29 Sodium Chloride 250 ML IV 0025 Vital Signs & I&O Last 24 Hrs of Vitals and I&O: Vital Signs Date Time Temp Pulse Resp B/P B/P Pulse O2 O2 Flow FiO2 Mean Ox Delivery Rate 01/30 0731 96 Nasal 1.0L Cannula 01/30 07 97.7 62 12 118/70 01/30 07 97.7 62 12 118/70 96 Nasal 1.0L Cannula 01/30 0400 96.7 66 20 114/70 01/30 0400 96 Nasal 1.0L Cannula 01/30 0200 57 22 111/67 01/30 0000 96.8 61 20 110/80 01/30 0000 96.8 61 20 110/80 92 Nasal 1.0L Cannula 01/30 0000 92 Nasal 1.0L Cannula 01/29 2200 66 23 133/70 01/30 2000 97.4 70 26 132/78 01/30 2000 97 Nasal 1.0L Cannula 01/30 1600 98.4 66 24 122/60 94 Nasal 1.0L Cannula 01/29 1600 95 Nasal 1.0L Cannula 01/29 1200 96 Ventilator 30% 01/29 1106 30 Intake & Output 01/30 1600 01/30 0800 01/30 0000 Intake Total 566 605 Output Total 1265 1200 Balance -699 -595 Intake, IV 466 485 Intake, Oral 100 120 Number 0 Bowel Movements Output, Urine 1265 1200 Physical Exam General Appearance: awake and alert Head: healing ecchymosis to L eye, small minute laceration to L forehead Neck: normal inspection Respiratory: scattered ronchi and crackles Cardiovascular: regular rate/rhythm, normal peripheral pulses Gastrointestinal: soft, non-tender Extremities: no edema, multiple tattoos on forearms Results Last 24 Hrs of Lab Results: Laboratory Tests 01/30/18 040: Anion Gap 11, Estimated GFR > 60, Glucose 85, Calcium 8.5, Phosphorus 3.8, Magnesium 1.9, Total Bilirubin 0.8, AST 33, ALT 29, Albumin 3.3 L, CBC w Diff NO MAN DIFF REQ, RBC 4.16 L, MCV 89.3, MCH 30.2, MCHC 33.8, RDW 13.0, MPV 8.6, Gran % 62.1, Lymphocytes % 26.1, Monocytes % 6.9, Eosinophils % 4.3, Basophils % 0.6, Absolute Granulocytes 4.1, Absolute Lymphocytes 1.7, Absolute Monocytes 0.5 , Absolute Eosinophils 0.3, Absolute Basophils 0 01/29/18 1350: pH 7.42, pCO2 37, pO2 81, HCO3 24, ABG O2 Sat (Measured) 95.0 L, P-50 (Temp Corrected) N, Carboxyhemoglobin 0.3 L, O2 Concentration % 30%, O2 Delivery Method T-PIECE, Phlebotomy Draw Site RIGHT RADIAL Impression/Plan Impression/Plan Impression/Plan: 1. Acute severe, hypoxemic respiratory failure secondary to aspiration pneumonitis versus aspiration pneumonia. Now improved, status post extubation. 2. Heroin and cocaine overdose. 3. History of alcohol abuse. 4. Sputum positive for staph aureus, MSSA. 5. Blood culture positive for bacillus, likely contaminant. Recommendations: * Advance diet if able. * Await speech therapy evaluation. * Discontinue IV fluids once the patient has adequate oral intake. * Continue IV Unasyn. * Taper oxygen down to off if able. * Incentive spirometry. * Monitor for evidence of withdrawal. * Reviewed telemetry strips with cardiology. * Increase activity, out of bed to chair. * Psychiatry and social service consults. * Will downgrade from ICU later today.
[2018-01-31] VITALS: BP 112/60
[2018-01-31 04:00] VITALS: BP 112/60
[2018-01-31 05:52] LABS: ABSOLUTE BASOPHIL COUNT 0 /CUMM (0.0-0.2); ABSOLUTE EOSINOPHIL COUNT 0.3 /CUMM (0.0-0.7); ABSOLUTE GRANULOCYTE CT 4.8 /CUMM (1.4-6.5); ABSOLUTE LYMPH COUNT 2.2 /CUMM (1.2-3.4); ABSOLUTE MONOCYTE COUNT 0.7 /CUMM (0.10-0.60); BASOPHIL % 0.5 % (0.0-2.0); EOSINOPHIL % 3.8 % (0-5); GRANULOCYTE % 60.4 % (42.2-75.2); HEMATOCRIT 38.4 % (42-52); MEAN CORPUSCULAR HGB 29.9 PG (27.0-31.0); MEAN CORPUSCULAR HGB CONC 33.7 G/DL (33.0-37.0); MEAN CORPUSCULAR VOLUME 88.5 FL (80.0-94.0); MEAN PLATELET VOLUME 8.7 FL (7.4-10.4); PLATELET COUNT 262 /CUMM (130-400); RED BLOOD CELL CT 4.34 /CUMM (4.70-6.10); WHITE BLOOD CELL COUNT 7.9 /CUMM (4.8-10.8)
[2018-01-31 06:00] VITALS: BP 110/60
--- NOTE | 2018-01-31 07:17 | PN- Resident CRCU ---
Allen Kong 01/31/18 0716: Subjective HPI/CRCU Issues: Aspiration pneumonia - MSSA s/p extubation from heroin/cocaine overdose 24 Hour Events: Patient seen and examined at bedside. Pt denies complaints. Denies fevers/chills /night sweats/chest pain/abdominal pain/urinary symptoms/lower extremity edema Objective Vital Signs & I&O Last 8 Hrs of Vitals and I&O: Vital Signs Date Time Temp Pulse Resp B/P B/P Pulse O2 O2 Flow FiO2 Mean Ox Delivery Rate 01/31 0600 70 24 110/60 01/31 0400 97.8 70 22 112/60 01/31 0000 97.8 69 18 112/60 09 0000 92 Room Air 01/31 0000 97.8 69 18 112/60 92 Room Air 01/30 2200 98.5 67 25 117/63 01/30 1600 97.6 67 18 102/68 95 Room Air 01/30 1000 97.8 68 21 123/73 Intake & Output 01/31 1600 01/31 0800 01/31 0000 Intake Total 300 420 Output Total 600 400 Balance -300 20 Intake, IV 200 100 Intake, Oral 100 320 Output, Urine 600 400 Exam General Appearance: no apparent distress, alert, awake, comfortable Head: healing L eye ecchymosis Neck: normal inspection Respiratory: rhoncherous in RUL RLL Cardiovascular: regular rate/rhythm, normal peripheral pulses, bradycardia ( sinus) Gastrointestinal: soft, non-tender Extremities: normal inspection, no edema Cranial Nerves: normal hearing, normal speech Skin: intact Skin Temp/Moisture Exam: Warm/Dry Weaning Parameters NIF: 34 Minute Volume: 11.5 Resp rate: 19 Vt: 578 Heart Rate: 65 Weaning Schedule Start Time: 0810 Minute Volume: 11.7 Resp Rate: 24 Vt: 612 Heart Rate: 64 End Time: 1030 Minute Volume: 10.8 Resp Rate: 17 Vt: 520 Heart Rate: 72 Start Time: 1230 Heart Rate: 72 Current Medications: Current Medications Sig/Jada Start time Last Medication Dose Route Stop Time Status Admin Acetaminophen 1,000 MG Q6P PRN 01/29 2030 AC 01/31 N/A 1 UNIT IV 0536 Ampicillin Sodium/ 3,000 MG Q6H 01/28 1600 AC 01/31 Sulbactam Sodium IV 0456 Sodium Chloride 100 ML Heparin Sodium 5,000 UNIT Q8 01/26 0600 AC 01/31 (Porcine) SC 0536 Insulin Aspart 0 Q6 01/26 0600 DC SC Melatonin 5 MG AT BEDTIME 01/29 2215 AC 01/30 PO 2205 Multivitamins 15 ML DAILY 01/27 1055 AC 01/30 PO 0901 Nicotine 21 MG DAILY 01/29 1259 AC 01/30 TOP 1047 Nystatin 5 ML 4 TIMES/DAY 01/28 1840 AC 01/30 PO 2205 Pantoprazole Sodium 40 MG DAILY 01/26 0900 AC 01/30 IV 0906 Phenol 2 SPRAY Q2P PRN 01/29 0845 AC 01/29 EXT 1658 Impression/Plan Impression/Problem List Impression: Mr Crowell is a 32-year-old male with a past medical history of substance abuse with multiple inpatient treatments, was incarcerated for substance abuse, overdose on heroin and cocaine by snorting yesterday with desaturations, woke up after 2 mg Narcan 2, vomited in the ED and was intubated, sedated and intubated at this time. He was borderline febrile on monday, and is on Unasyn day 6 ( started 01/26/18). He did have 7 beats of nonsustained ventricular tachycardia on telemetry strip at 0328 on 01/29. He is s/p extubation on 01/29/18 at 1445 which he tolerated well and is pending swallow eval today to restart feedings He can be downgraded to general medical floor today. Cardiology was consulted about the abnormal telemetry findings on 01/29. Respiratory: acute hypoxemic respiratory failure, aspiration PNA growing S. aureus pansensitive -He is status post extubation on 01/29/18 -Nebs/TRC prn -Good saturations on room air at this time Infectious Disease: MSSA pneumonia -Leukocytes 7.9 without bands; afebrile in the am -Urine antigens negative for strep or legionella -On Unasyn 1500mg IV q6, day 6; received Vancomycin for two days which was discontinued -Hepatitis C serology positive, will follow-up outpatient GI for workup -Cultures growing staph aureus [place] sensitive. Cardiovascular/Circulation: cocaine use, r/o ACS -NSR on the monitor -Troponin and EKG negative -Normal ejection fraction and no evidence of vegetations on echocardiogram Hematological: stable -H/H 13.0/38.4 which patient had ingested prior to admission) Metabolic: Tox positive for Cocaine, Opiates -Had high blood surgars, on insulin sliding scale which was discontinued yesterday as he had not had any recent fingersticks -HBA1c 5.2 -Mild transaminitis resolved -Phosphorus now WNL -Will replete lytes as needed -Monitor with ICU bundle Alimentary: -Tolerating regular diet -s/p Thiamine, MVI Neurologic: Intact -CT head negative -Off sedation, no focal neuro deficits noted. Nephro: Mild PAUL, resolved -Munoz in place, which will be discontinued today DVT PPX IV access Full Code Problem List: 1. Opiate overdose 2. Aspiration pneumonia Pain Ratin Tomorrow's Labs & Rationales: cbc bep Plan DVT/Prophylaxis: mechanical, pharmacological Rashida VAZQUEZ,Jeanine Mcdonough 01/31/18 0900: Attending MD Review Statement Attending Sign Off Attending Cosign Statement: I have: examined this patient, reviewed [employer] EMR data, personally reviewd images, discussd w/resident/PA/CERTIFIED RESPIRATORY THERAPIST, discussed mgmt plan w/pt, agreed w/resident/ PA/CERTIFIED RESPIRATORY THERAPIST. Reason for Cont Hospitalizatn: Respiratory failure, recent extubation, heroin and cocaine overdose. Other Findings: The patient is awake and alert. He continues to improve. He is speaking in longer sentences. He is oriented and less confused. There were no overnight events reported. He remains in normal sinus rhythm without arrhythmias. A cardiology consult was placed for nonsustained VT and we are awaiting their input. We will get the patient out of bed to chair, increase activity, and continue to follow psychiatry and social insurance specialist input. We will continue all supportive care for now.
[2018-01-31 08:00] VITALS: BP 110/70
--- NOTE | 2018-01-31 15:15 | Cons- Cardiology ---
General Information and HPI Consulting Request Date of Consult: 01/31/18 Requested By: Jeanine Field MD Reason for Consult: VTACH History of Present Illness: 32-year-old male KELI from home after found unresponsive on the floor in his parents house. Patient was last seen normal at 17:00. EMS were called and patient was found in agonal respiration . On EMS arrival oxygen saturation was 58%, Blood sugar -322. Patient could answer questions and admitted to snorting 2 bags of heroine and 2 hits of cocaine. On arrival to the emergency department patient was severely tachypneic respiratory rate of 48, oxygen saturation was in the range of 70s on 100% of nonrebreather mask, afebrile. He vomited. His ABG was showing pH 7.20, PCO2 54, PO2 95, bicarbonate 21. He was intubated. He has since been improving clinically. He denies chest pains, denies palpitations and denies lightheadedness. A 7 beat run of VTACH was observed on cardiac monitoring on 01/29/2018, completely asymptomatic, no other ventricular arrhythmia since. Allergies/Medications Allergies: Coded Allergies: NO KNOWN ALLERGIES (12/27/11) Current Medications: Current Medications Sig/Jada Start time Last Medication Dose Route Stop Time Status Admin Acetaminophen 1,000 MG Q6P PRN 01/29 2030 AC 01/31 N/A 1 UNIT IV 0536 Ampicillin Sodium/ 3,000 MG Q6H 01/28 1600 AC 01/31 Sulbactam Sodium IV 0848 Sodium Chloride 100 ML Heparin Sodium 5,000 UNIT Q8 01/26 0600 AC 01/31 (Porcine) SC 0536 Insulin Aspart 0 Q6 01/26 0600 DC SC Melatonin 5 MG AT BEDTIME 01/29 2215 AC 01/30 PO 2205 Multivitamins 15 ML DAILY 01/27 1055 AC 01/31 PO 0847 Nicotine 21 MG DAILY 01/29 1259 AC 01/31 TOP 0847 Nystatin 5 ML 4 TIMES/DAY 01/28 1840 AC 01/31 PO 0847 Pantoprazole Sodium 40 MG DAILY 01/26 0900 AC 01/31 IV 0847 Phenol 2 SPRAY Q2P PRN 01/29 0845 AC 01/29 EXT 1658 Past History Travel History Traveled to [place] past 21 day No Medical History Neurological: NONE EENT: NONE Cardiovascular: NONE Respiratory: NONE Gastrointestinal: NONE Hepatic: NONE Renal: NONE Musculoskeletal: NONE Psychiatric: anxiety, substance abuse Endocrine: NONE Blood Disorders: NONE POLICY WRITER/Reproductive: NONE Surgical History Surgical History: none Psychosocial History Where Do You Live? Home Smoking Status: Current Everyday Smoker ETOH Use: occasional use Illicit Drug Use: cocaine, heroin Exam & Diagnostic Data Vital Signs and I&O Vital Signs Date Time Temp Pulse Resp B/P B/P Pulse O2 O2 Flow FiO2 Mean Ox Delivery Rate 01/31 08 97.7 62 20 110/70 97 Room Air 01/31 0600 70 24 110/60 01/31 0400 97.8 70 22 112/60 01/31 0000 97.8 69 18 112/60 01/31 0000 92 Room Air 01/31 0000 97.8 69 18 112/60 92 Room Air 01/30 2200 98.5 67 25 117/63 01/30 1600 97.6 67 18 102/68 95 Room Air Intake & Output 01/31 1600 01/31 0800 01/31 0000 01/30 1600 01/30 0800 01/30 0000 Intake Total 300 420 800 566 605 Output Total 746 062 4622 1265 1200 Balance -300 20 -280 -699 -595 Intake, IV 200 100 400 466 485 Intake, Oral 100 320 400 100 120 Number 0 Bowel Movements Output, Urine 924 619 2122 1265 1200 Physical Exam General Appearance: well developed/nourished, no apparent distress, alert, comfortable Head: atraumatic, normal appearance Eyes: Bilateral: normal appearance, PERRL, EOMI. Ears, Nose, Throat: normal ENT inspection Neck: normal inspection, supple, full range of motion, trachea mid line (no JVD) Respiratory: normal breath sounds, chest non-tender, lungs clear Cardiovascular: regular rate/rhythm, No audible murmur or rub normal apical impulse Gastrointestinal: normal bowel sounds, soft, non-tender, no organomegaly Extremities: normal capillary refill, no edema Neurologic/Psych: no motor/sensory deficits, oriented x 3, normal mood/affect Labs/Tj Results: Laboratory Tests 01/31 01/30 0415 0400 Chemistry Sodium (137 - 145 mmol/L) 139 140 Potassium (3.5 - 5.1 mmol/L) 3.8 4.3 Chloride (98 - 107 mmol/L) 104 107 Carbon Dioxide (22 - 30 mmol/L) 24 23 Anion Gap (5 - 16) 11 11 BUN (9 - 20 mg/dL) 15 9 Creatinine (0.7 - 1.2 mg/dL) 0.8 0.7 Estimated GFR (>60 ml/min) > 60 > 60 BUN/Creatinine Ratio (7 - 25 %) 18.8 Glucose (65 - 99 mg/dL) 85 Hemoglobin A1c (4.2 - 5.8 %) 5.2 Calcium (8.4 - 10.2 mg/dL) 8.5 Phosphorus (2.5 - 4.5 mg/dL) 4.8 H 3.8 Magnesium (1.6 - 2.3 mg/dL) 1.9 1.9 Total Bilirubin (0.2 - 1.3 mg/dL) 0.8 AST (17 - 59 U/L) 33 ALT (21 - 72 U/L) 29 Albumin (3.5 - 5.0 g/dL) 3.3 L Hematology CBC w Diff NO MAN DIFF REQ NO MAN DIFF REQ WBC (4.8 - 10.8 /CUMM) 7.9 6.6 RBC (4.70 - 6.10 /CUMM) 4.34 L 4.16 L Hgb (14.0 - 18.0 G/DL) 13.0 L 12.5 L Hct (42 - 52 %) 38.4 L 37.1 L MCV (80.0 - 94.0 FL) 88.5 89.3 MCH (27.0 - 31.0 PG) 29.9 30.2 MCHC (33.0 - 37.0 G/DL) 33.7 33.8 RDW (11.5 - 14.5 %) 13.0 13.0 Plt Count (130 - 400 /CUMM) 262 215 MPV (7.4 - 10.4 FL) 8.7 8.6 Gran % (42.2 - 75.2 %) 60.4 62.1 Lymphocytes % (20.5 - 51.1 %) 27.1 26.1 Monocytes % (1.7 - 9.3 %) 8.2 6.9 Eosinophils % (0 - 5 %) 3.8 4.3 Basophils % (0.0 - 2.0 %) 0.5 0.6 Absolute Granulocytes (1.4 - 6.5 /CUMM) 4.8 4.1 Absolute Lymphocytes (1.2 - 3.4 /CUMM) 2.2 1.7 Absolute Monocytes (0.10 - 0.60 /CUMM) 0.7 H 0.5 Absolute Eosinophils (0.0 - 0.7 /CUMM) 0.3 0.3 Absolute Basophils (0.0 - 0.2 /CUMM) 0 0 Assessment/Plan Assessment/Plan 7 beat run of VTACH, asymptomatic, in young patient 3 days post cocain/heroin overdose, complicated by aspiration pneumonia/pneumonitis. No evidence of CMP or cocain-induce coronary vasospam. Patient can be discharged to the medicine floor. He does not need any further cardiac testing at this time. Consult Acknowledgment - Thank you for your consult request.
[2018-01-31 16:00] VITALS: BP 114/70
[2018-01-31 23:12] VITALS: BP 102/70
[2018-02-01 06:40] VITALS: BP 111/59
--- NOTE | 2018-02-01 07:02 | PN- Housestaff ---
Joaquin Raymond 02/01/18 0702: Subjective Follow-up For: Aspiration pneumonia S/P extubation from heroin/cocaine overdose Subjective: Patient seen and examined at the bedside after being transferred to our service overnight. Denies any pain. Denies fever/chills/night sweats/chest pain/ abdominal pain/urinary symptoms. Review of Systems Constitutional: Reports: see HPI. Objective Last 24 Hrs of Vital Signs/I&O Vital Signs Date Time Temp Pulse Resp B/P B/P Pulse O2 O2 Flow FiO2 Mean Ox Delivery Rate 02/01 0800 98.6 46 20 111/59 02/01 0640 98.6 46 20 111/59 96 Room Air 01/31 2312 98.1 46 18 102/70 95 Room Air 01/31 1600 98.0 62 20 114/70 98 Room Air Intake & Output 02/01 1600 02/01 0800 02/01 0000 Intake Total 450 240 Output Total Balance 450 240 Intake, IV 250 Intake, Oral 200 240 Patient 211 lb Weight Weight Bed scale Measurement Method Physical Exam General Appearance: Alert, Oriented X3, Cooperative, No Acute Distress Skin: No Rashes, No Breakdown, No Significant Lesion Skin Temp/Moisture Exam: Warm/Dry HEENT: Atraumatic, PERRLA, EOMI, Mucous Membr. moist/pink Lungs: Clear to Auscultation, Normal Air Movement Neurological: Normal Gait, Normal Speech, Strength at 5/5 X4 Ext, Normal Tone, Sensation Intact Extremities: No Clubbing, No Cyanosis, No Edema Current Medications: Current Medications Sig/Jada Start time Last Medication Dose Route Stop Time Status Admin Acetaminophen 1,000 MG Q6P PRN 01/29 2030 AC 01/31 N/A 1 UNIT IV 2030 Ampicillin Sodium/ 3,000 MG Q6H 01/28 1600 AC 02/01 Sulbactam Sodium IV 0458 Sodium Chloride 100 ML Heparin Sodium 5,000 UNIT Q8 01/26 0600 AC 02/01 (Porcine) SC 0511 Melatonin 5 MG AT BEDTIME 01/29 2215 AC 01/30 PO 2205 Multivitamins 1 TAB DAILY 02/01 1000 AC PO Multivitamins 15 ML DAILY 01/27 1055 DC 01/31 PO 0847 Nicotine 21 MG DAILY 01/29 1259 AC 02/01 TOP 0526 Nystatin 5 ML 4 TIMES/DAY 01/28 1840 AC 02/01 PO 0856 Omeprazole 20 MG DAILY AC 02/01 1000 AC PO Pantoprazole Sodium 40 MG DAILY 01/26 0900 DC 01/31 IV 0847 Phenol 2 SPRAY Q2P PRN 01/29 0845 AC 01/29 EXT 1658 Ramelteon 0 .STK-MED ONE 01/314 DC PO Ramelteon 8 MG ONCE ONE 01/31 2215 DC 01/31 PO 01/31 Assessment/Plan Assessment: Mr Crowell is a 32-year-old male with a past medical history of substance abuse with multiple inpatient treatments, was incarcerated for substance abuse, overdose on heroin and cocaine by snorting yesterday with desaturations, woke up after 2 mg Narcan 2, vomited in the ED and was intubated, sedated and intubated at this time. He was borderline febrile on monday, and is on Unasyn day 6 ( started 01/26/18). He did have 7 beats of nonsustained ventricular tachycardia on telemetry strip at 0328 on 01/29. He is s/p extubation on 01/29/18 at 1445 which he tolerated well and is pending swallow eval today to restart feedings Patient downgraded to general medical hold, discharged today with 2 days of Augmentin. Respiratory: acute hypoxemic respiratory failure, aspiration PNA growing S. aureus pansensitive -He is status post extubation on 01/29/18 -Nebs/TRC prn -Good saturations on room air at this time Infectious Disease: MSSA pneumonia -Leukocytes 7.9 without bands; afebrile in the am -Urine antigens negative for strep or legionella -On Unasyn 1500mg IV q6, day 6; received Vancomycin for two days which was discontinued -Discharged w/ 2 days of oral augmentin -Hepatitis C serology positive, will follow-up outpatient GI for workup -Cultures growing staph aureus [place] sensitive. Cardiovascular/Circulation: cocaine use, r/o ACS -NSR on the monitor -Troponin and EKG negative -Normal ejection fraction and no evidence of vegetations on echocardiogram Hematological: stable -H/H 13.0/38.4 which patient had ingested prior to admission) Metabolic: Tox positive for Cocaine, Opiates -Had high blood sugars, on insulin sliding scale which was discontinued yesterday as he had not had any recent fingersticks -HBA1c 5.2 -Mild transaminitis resolved -Phosphorus now WNL -Will replete lytes as needed -Monitor with ICU bundle Alimentary: -Tolerating regular diet -s/p Thiamine, MVI Neurologic: Intact -CT head negative -Off sedation, no focal neuro deficits noted. Nephro: Mild PAUL, resolved -Munoz in place, which will be discontinued today DVT PPX:Lovenox and ALPS Regular diet Patient is full code Problem List: 1. Opiate overdose 2. Aspiration pneumonia Pain Ratin Pain Location: none Pain Goal: Remain pain free Pain Plan: none Tomorrow's Labs & Rationales: none; planned discharge today Shawnee Cooper MD 02/01/18 0956: Attending MD Review Statement Attending Statement Attending MD Statement: examined this patient, discuss w/resident/PA/CERTIFIED HEALTH EDUCATION SPECIALIST, agreed w/resident/PA/CERTIFIED HEALTH EDUCATION SPECIALIST, reviewed EMR data (avail), discussed with nursing, discussed with case mgmt, reviewed images Attending Assessment/Plan: Patient transferred to the medical service today. He is a 32-year-old male with past medical history of polysubstance abuse and hepatitis C who came in with a heroin and cocaine overdose. He went into acute respiratory failure and was intubated. He has been treated with IV Unasyn for MSSA pneumonia. He was extubated on January 29, seen by social work and has outpatient resources for rehab. He is medically stable, we will switch him to p.o. antibiotics and he can leave with close outpatient follow-up. Drug cessation counseled.
[2018-02-01 08:00] VITALS: BP 111/59
[2018-02-01] MEDS ORDERED: AMOX-CLAV 500-1 EACH PO ×2 (08:38→09:30)
--- NOTE | 2018-02-01 08:41 | Patient Discharge Instructions ---
Discharge Instructions General Discharge Information Special Instructions: - Please follow up with your primary care physician within 1-2 weeks of discharge. Inform your primary care physician of this admission to [facility]. - Please make an appointment with gastroenterology for workup and management of your hepatitis C - Continue your current medications per discharge instructions. - Please watch for these problems: Fever, Chills, Nausea, Vomiting, Shortness of Breath, Productive Cough, Chest Pain/Discomfort, Abdominal Pain, Active Bleeding or Bloody urine/stool. Acute Coronary Syndrome Inclusion Criteria At DC or during hospital stay patient has or had the following: ACS DIAGNOSIS No Discharge Core Measures Meds if any: Prescribed or Continued at Discharge Meds if any: NOT Prescribed or Continued at Discharge Congestive Heart Failure Inclusion Criteria At DC or during hospital stay patient has or had the following: CHF DIAGNOSIS No Discharge Core Measures Meds if any: Prescribed or Continued at Discharge Meds if any: NOT Prescribed or Continued at Discharge Cerebrovascular accident Inclusion Criteria At DC or during hospital stay patient has or had the following: CVA/TIA Diagnosis No Discharge Core Measures Meds if any: Prescribed or Continued at Discharge Meds if any: NOT Prescribed or Continued at Discharge Venous thromboembolism Inclusion Criteria VTE Diagnosis No VTE Type NONE VTE Confirmed by (Test) NONE Discharge Core Measures - Per Current guidelines, there needs to be overlap - treatment for the first 5 days of Warfarin therapy. - If discharged on Warfarin prior to 5 days of - overlap therapy, the patient will need to be - assessed for post discharge needs including - *Post discharge parental anticoagulation - *Warfarin and/or parental anticoagulation education - *Follow up date to check INR post discharge At least 5 days overlap therapy as Inpatient No Meds if any: Prescribed or Continued at Discharge Note: Overlap Therapy is Warfarin and Anticoagulant Meds if any: NOT Prescribed or Continued at Discharge
--- NOTE | 2018-02-01 11:41 | Discharge Summary ---
Visit Information Visit Dates Admission Date: 01/26/18 Discharge Date: 02/01/18 Hospital Course Course Attending Physician: Kenneth VAZQUEZ,Shawnee Caldwell Primary Care Physician: Patient Has No Primary Care Dr Hospital Course: Mr Crowell is a 32-year-old male BIBA from the home after he found unresponsive on the floor and his parents house. Patient was last seen normal around 17:00. EMS were called and patient was found in agonal respiration he was given 2 doses of 2 mg of Narcaine with BMV. On EMS arrival oxygen saturation was 58%, Blood sugar -322. Patient was awakened answer the questions and admitted that he snorted 2 bags of heroine and 2 hits of cocaine. In the emergency department Dr. Duarte talked to the parents and they told that patient was clean for a year. On arrival to the emergency department patient was severely tachypneic respiratory rate of 48, oxygen saturation was in the range of 70s on 100% of nonrebreather mask, afebrile. On auscultation he was having bronchitis. He vomited. His ABG was showing pH 7.20, PCO2 54, PO2 95, bicarbonate 21. It was decided that he should be intubated. He was intubated and kept on ventilator assist control ventilation with tidal volume of 500, PEEP of 8, respiratory rate of 26. He was having generalized twitches so given injection Ativan 2mg in ED. House staff called the mother Maggie and ask about the problem and according to her patient was having history of substance use disorder since last 6 years. He underwent multiple programs and was sober since last 8-month. He was incarcerated due to substance use. He also drinks alcohol occasionally. He smokes three quarters of pack every day. 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 He is unmarried. On my examination, patient was sedated and intubated on Ativan drip. Patient did open eyes, closed fist and followed commands. Was sinus on monitor and appeared comfortable. Lungs had rhonchi to R base and apex, L upper lobe. Family was at bedside. States that patient has no past medical history, but has been struggling with addiction. Has been clean for ~8 months, but has been under increasing stress with work and per brother "fell back in with the wrong crowd". States that he does not typically drink. States that he has not expressed any SI recently. He was admitted to the ICU, intubated, with bilateral opacifications on CXR with suspected aspiration pneumonia and early ARDS picture sedated on ativan drip, with fentanyl drip added to maintain SAS at 2. He also had elevated sugars in the ED and was placed on a sliding scale. He went for CT head which showed no acute pathology, and he was placed on Unasyn for aspiration pneumonia. His cultures started growing pansensitive Staph, and his PO2/FiO2 ratio improved to 166, with the previous days being 92. He had borderline fevers and increasing leukocytosis with bands and so was given one dose of Vancomycin on 01/27. He was started on tube feeds, but unfortunately he pulled his OG tube out and was suctioned to prevent further aspiration and his tube feeds were discontinued. His blood cultures started growing large ru positive rods on 01/28 but were likely contaminant. His vancomycin was discontinued on 01/29 because of cultures growing pansensitive staph, and he was continued on unasyn. He passed weaning trials and was extubated on 01/29. His hospital course remained uncomplicated after that, receiving a total of 7 days of Unasyn. He was discharged on 02/01, to go home with 2 more days of Augmentin to complete a 10 day course total for MSSA pneumonia. He verbalized understanding of treatment plan, was told to follow up with his IOP and therapist, as well as GI given his positive HCV serology, and was given strict return precautions and counseled on resources to quit heroin. He will follow up with a PCP within 2 weeks. Allergies: Coded Allergies: NO KNOWN ALLERGIES (12/27/11) Significant Procedures: Intubated Pertinent Lab Results: Positive HCV AB Disposition Summary Disposition Principal Diagnosis: #Heroin/Cocaine overdose #Acute hypoxemic respiratory failure #Aspiration Pneumonia #MSSA pneumonia #Transaminitis #Hypophosphatemia Additional Diagnosis: as above Discharge Disposition: home or self care Discharge Instructions General Discharge Information Code Status: Full Code Patient's Diet: as tolerated Patient's Activity: as tolerated Follow-Up Instructions/Appts: - Please make attempts to quit heroin/cocaine. Resources are provided, contact social work for further resources -Please take two more days of Augmentin - Please follow up with your primary care physician within 1-2 weeks of discharge. Inform your primary care physician of this admission to [facility]. - Continue your current medications per discharge instructions. - Please watch for these problems: Fever, Chills, Nausea, Vomiting, Shortness of Breath, Productive Cough, Chest Pain/Discomfort, Abdominal Pain, Active Bleeding or Bloody urine/stool. Medications at Discharge Discharge Medications: Start taking the following new medications: Amoxicillin/Potassium Clav (Amox-Clav 500-125 MG Tablet) 500 MG-125 MG TABLET 1 Tablet ORAL TWICE DAILY Qty = 4 No Refills Instructions: . Comments: Last Taken: NOT GIVEN IN HOSPITAL Time: WAS RECEIVING IV ANTIBIOTICS Copies To: Abe VAZQUEZ,Abe
== END 2018-02-01 12:55 | DRG 816 ==
LOC: ERH → ERHI 01:12 → CRI 01:12 → ERH 01:13 → ENRESERV 03:13 → CRI 04:29 → ENTRNSPT 01-31 20:01 → EDTRNSPTSTS 01-31 20:03 → EDTRNSPT 01-31 20:03 → CMPTRNSPT 01-31 20:19 → 1NO 01-31 21:00 → ENPENDDIS 02-01 09:34 → 1NO 02-01 12:55
PROVIDERS: Emergency Medicine; Internal Medicine; Internal Medicine Adolescent Medicine; Physical Medicine & Rehabilitation
PROC: 0BH17EZ Insertion of Endotracheal Airway into Trachea, Via Natural or Artificial Opening (ICD-10-PCS; principal; 2018-01-26)
PROC: 5A1945Z Respiratory Ventilation, 24-96 Consecutive Hours (ICD-10-PCS; 2018-01-26)
DX: T40.1X1A Poisoning by heroin, accidental (unintentional), initial encounter (principal); J69.0 Pneumonitis due to inhalation of food and vomit; J15.211 Pneumonia due to Methicillin susceptible Staphylococcus aureus; J96.01 Acute respiratory failure with hypoxia; N17.9 Acute kidney failure, unspecified; E87.2 Acidosis; T40.5X1A Poisoning by cocaine, accidental (unintentional), initial encounter; F17.200 Nicotine dependence, unspecified, uncomplicated; R89.3 Abnormal level of substances chiefly nonmedicinal as to source in specimens from other organs, systems and tissues; F19.10 Other psychoactive substance abuse, uncomplicated; R73.9 Hyperglycemia, unspecified; S00.12XA Contusion of left eyelid and periocular area, initial encounter; F10.10 Alcohol abuse, uncomplicated; I47.2 Ventricular tachycardia; R74.0 Nonspecific elevation of levels of transaminase and lactic acid dehydrogenase [LDH]
CPT/HCPCS: 1NSP; 84133; 84300; CCU; 36415; 36592; 71045; 76775; 80307; 81001; 82436; 82570; 87040; 87070; 87071; 87086; 87147; 87389; 87449; 87450; 93005; 93010; 93306; 94799; 96360; 96361; 96365; 96375; 99291; G0480; J0131; J1644; J2060; J2405; J3010; J3370; J7040; J7042; J7060; S5012